=== PATIENT | male | born 1955 | race Caucasian/White ===

== ENCOUNTER → 2017-11-17 | Outpatient (CLI) | payer OTHER ==
[~2017-11-17] MED LIST: ALBUTEROL SULF 2.5 MG/0.5ML(0.5%) NEB SOLN ONE
== END | disposition home or self-care (01) ==
LOC: RT 08:27
DX: J44.9 Chronic obstructive pulmonary disease, unspecified (principal); I10 Essential (primary) hypertension; M10.9 Gout, unspecified; N40.1 Benign prostatic hyperplasia with lower urinary tract symptoms; E78.2 Mixed hyperlipidemia; M79.2 Neuralgia and neuritis, unspecified; F32.89 Other specified depressive episodes; R80.1 Persistent proteinuria, unspecified; R97.20 Elevated prostate specific antigen [PSA]; R16.2 Hepatomegaly with splenomegaly, not elsewhere classified; R69 Illness, unspecified; R79.89 Other specified abnormal findings of blood chemistry; B02.9 Zoster without complications; E78.81 Lipoid dermatoarthritis; D17.1 Benign lipomatous neoplasm of skin and subcutaneous tissue of trunk; Z86.59 Personal history of other mental and behavioral disorders
CPT/HCPCS: 94060

== ENCOUNTER 2020-08-28 01:33 | Inpatient (IN) | payer MEDICARE, OTHER ==
[~2020-08-28] VITALS: Ht 188 cm; Wt 100.7 kg
[2020-08-28] MEDS ORDERED: cloNIDine HCL 0.1 MG TAB PO ONE ×2 (01:45→03:15)
[2020-08-28 02:25] LABS: Basophils # (auto) 0 10 ^3/uL (0-0.2); Basophils % (auto) 0.5 % (0.0-2.0); Eosinophils # (auto) 0 10 ^3/uL (0-0.8); Hematocrit 53.7 % (41.0-53.0); Hemoglobin 17.9 g/dL (13.5-17.5); Lymphocytes # (auto) 0.6 10 ^3/uL (0.4-5.4); Lymphocytes % (auto) 6.1 % (10.0-50.0); Mean Corpuscular Hemoglobin 29.5 pg (28.0-32.0); Mean Corpuscular Hgb Conc. 33.2 g/dL (32.0-36.0); Mean Corpuscular Volume 88.9 fL (80.0-100.0); Monocytes # (auto) 0.1 10 ^3/uL (0-1.3); Monocytes % (auto) 0.7 % (0.0-12.0); Neutrophils # (auto) 9.1 10 ^3/uL (1.6-8.6); Neutrophils % (auto) 92.7 % (37.0-80.0); Nucleated Red Blood Cells % 0.2 %; Platelet Count (auto) 79 10^3/uL (140-450); Red Blood Cells 6.05 10^6/uL (4.5-5.90); Red Cell Distribution Width 15.6 % (11.8-14.3); White Blood Cell 9.9 10^3/uL (4.4-10.8)
[2020-08-28 02:31] LABS: INR 0.99 (0.9-1.15); Partial Thromboplastin Time 26.7 sec (23.0-31.2)
[2020-08-28 02:33] LABS: Albumin 4.1 g/dL (3.4-5.0); Anion Gap 6 (5-15); Blood Urea Nitrogen 20 mg/dL (7-18); Calcium 9.2 mg/dL (8.5-10.1); Carbon Dioxide 26 mmol/L (21-32); Chloride 107 mmol/L (98-107); Glucose 130 mg/dL (74-106); Potassium 4.4 mmol/L (3.5-5.1); Sodium 139 mmol/L (136-145)
[2020-08-28 02:38] LABS: Alanine Aminotransferase 31 U/L (16-61); Alkaline Phosphatase 96 U/L (45-117); Aspartate Aminotransferase 18 U/L (15-37); BUN/Creatinine Ratio 17.5; Bilirubin, Total 0.9 mg/dL (0.2-1.0); GFR African American 83 mL/min; GFR Non-African American 68 mL/min; Total Protein 8.1 g/dL (6.4-8.2)
[2020-08-28] MEDS ORDERED: methylPREDNISolone SOD SUCC 125 MG/2 ML VL IV ONE (03:15)
[2020-08-28] MEDS ORDERED: IPRATROPIUM BROM 0.5 MG/2.5ML INH SOL NEB ONE (03:15)
[2020-08-28] MEDS ORDERED: ALBUTEROL SULF 2.5 MG/0.5ML(0.5%) NEB SOLN NEB ONE (03:15)
[2020-08-28] MEDS ORDERED: MORPHINE SULF INJ 2 MG/ML SYRINGE 1ML IV PRN (04:30)
[2020-08-28] MEDS ORDERED: ONDANSETRON HCL 4 MG/2 ML VIAL IV PRN (04:30)
[2020-08-28] MEDS ORDERED: ACETAMINOPHEN 325 MG TAB PO PRN (04:30)
[2020-08-28] MEDS ORDERED: TEMAZEPAM 15 MG CAP PO PRN (04:30)
[2020-08-28] MEDS: ALBUTEROL SULF 2.5 MG/0.5ML(0.5%) NEB SOLN NEB SCH ×4 (06:07→23:46)
[2020-08-28] MEDS: IPRATROPIUM BROM 0.5 MG/2.5ML INH SOL NEB SCH ×4 (06:08→23:46)
[2020-08-28] MEDS ORDERED: ENOXAPARIN SOD 40 MG/0.4 ML SYRINGE SC SCH ×2 (10:00)
[2020-08-28] MEDS: FAMOTIDINE 20 MG TAB PO SCH ×2 (10:10→21:56)
[2020-08-28] MEDS: LISINOPRIL 5 MG TAB PO SCH (10:10)
[2020-08-28] MEDS ORDERED: MET50T PO (10:37)
[2020-08-28] MEDS ORDERED: FLUO-126 PO (10:37)
[2020-08-28] MEDS ORDERED: CLON0.2T PO (10:37)
[2020-08-28] MEDS ORDERED: ALLO100T PO (10:37)
[2020-08-28] MEDS ORDERED: FINA5TAB4 PO (10:37)
[2020-08-28] MEDS ORDERED: TIOT17SP IN (10:37)
[2020-08-28] MEDS ORDERED: ALBUAER3 IN (10:37)
[2020-08-28] MEDS ORDERED: LISI-646 PO (10:37)
[2020-08-28] MEDS ORDERED: BUDE1AER4 IN (10:37)
[2020-08-28] MEDS ORDERED: CYAN100T7 PO (10:37)
[2020-08-28] MEDS ORDERED: ALFU10TA10 PO (10:37)
[2020-08-28 15:06] VITALS: BP 131/76
[2020-08-28 16:00] VITALS: BP 154/89
--- NOTE | 2020-08-28 16:00 | NUR ---
Telemetry admit from [facility] admitted to Telemetry unit after SBAR received. Patient oriented to Amina Najera, primary RN, unit, room, bed, and unit policies regarding patient care and visiting hours. Patient now on continuous telemetry monitoring, tele box # 49 and telemetry reading on arrival to unit is SINUS RHYTHM IN THE 60'S. Patient placed on bedside oxygen, weighed by bedscale and encouraged to call if they need something. All questions and concerns addressed, patient verbalized understanding. Bed locked in lowest position, side rails up x2, call light within reach. Will continue to monitor q1hr and PRN.
[2020-08-28 17:00] VITALS: BP 154/89
[2020-08-28] MEDS ORDERED: amLODIPine BESYLATE 5 MG TAB PO ONE (17:45)
[2020-08-28] MEDS ORDERED: AZITHROMYCIN 250 MG TAB PO ONE (17:45)
--- NOTE | 2020-08-28 18:37 | NUR ---
PATIENT ROUNDS PATIENT SITTING UP EATING DINNER. NO DISTRESS NOTED. PATIENT MIKAL PAIN AT THIS TIME. WILL ENDORSE CARE TO CARPET TILE LAYER RN.
--- NOTE | 2020-08-28 19:45 | NUR ---
Opening Shift Note Assumed care of patient, awake and alert x 4. No S/S of distress/SOB or pain. Tele box matches pt all leads in place. Bed lowered and locked side rails up x 2. Call light and beside table within reach. Instructed on POC and to call for assist PRN, will continue to monitor for changes Q1hr and PRN.
[2020-08-28] MEDS: cloNIDine HCL 0.1 MG TAB PO PRN (21:55)
[2020-08-28 22:00] VITALS: BP 162/90
[2020-08-29 05:00] VITALS: BP 161/94
[2020-08-29 06:17] LABS: Basophils # (auto) 0 10 ^3/uL (0-0.2); Basophils % (auto) 0.1 % (0.0-2.0); Eosinophils # (auto) 0 10 ^3/uL (0-0.8); Hematocrit 45.7 % (41.0-53.0); Lymphocytes # (auto) 0.9 10 ^3/uL (0.4-5.4); Lymphocytes % (auto) 5.8 % (10.0-50.0); Mean Corpuscular Hgb Conc. 32.8 g/dL (32.0-36.0); Mean Corpuscular Volume 88.4 fL (80.0-100.0); Monocytes # (auto) 0.6 10 ^3/uL (0-1.3); Monocytes % (auto) 3.7 % (0.0-12.0); Neutrophils # (auto) 14.3 10 ^3/uL (1.6-8.6); Neutrophils % (auto) 90.4 % (37.0-80.0); Nucleated Red Blood Cells % 0.2 %; Platelet Count (auto) 74 10^3/uL (140-450); Red Blood Cells 5.17 10^6/uL (4.5-5.90); Red Cell Distribution Width 15.6 % (11.8-14.3); White Blood Cell 15.8 10^3/uL (4.4-10.8)
[2020-08-29] MEDS: ALBUTEROL SULF 2.5 MG/0.5ML(0.5%) NEB SOLN NEB SCH ×3 (06:52→19:23)
[2020-08-29] MEDS: IPRATROPIUM BROM 0.5 MG/2.5ML INH SOL NEB SCH ×3 (06:53→19:23)
[2020-08-29 07:26] LABS: Anion Gap 7 (5-15); BUN/Creatinine Ratio 21.4; Blood Urea Nitrogen 21 mg/dL (7-18); Calcium 8.7 mg/dL (8.5-10.1); Carbon Dioxide 24 mmol/L (21-32); Chloride 108 mmol/L (98-107); GFR African American 98 mL/min; GFR Non-African American 81 mL/min; Glucose 101 mg/dL (74-106); Potassium 4.2 mmol/L (3.5-5.1); Sodium 139 mmol/L (136-145)
--- NOTE | 2020-08-29 07:35 | NUR ---
Opening Shift Note Assumed care of patient, awake and alert. No S/S of distress/SOB, patient denies pain at this time. Instructed on POC and to call for assistance PRN, patient verbalized understanding. Bed locked in lowest position, side rails up x2, call light within reach. Will continue to monitor for changes Q1hr and PRN.
[2020-08-29 09:00] VITALS: BP 143/89
[2020-08-29] MEDS: FAMOTIDINE 20 MG TAB PO SCH ×2 (09:27→21:46)
[2020-08-29] MEDS: methylPREDNISolone SOD SUCC 40 MG/ML VL IV SCH ×2 (09:28→09:29)
[2020-08-29] MEDS: amLODIPine BESYLATE 5 MG TAB PO SCH (09:28)
[2020-08-29] MEDS: LISINOPRIL 5 MG TAB PO SCH (09:28)
[2020-08-29] MEDS: AZITHROMYCIN 250 MG TAB PO SCH (09:28)
[2020-08-29] MEDS ORDERED: ALLOPURINOL 100 MG TAB PO ONE (11:00)
[2020-08-29] MEDS: FLUoxetine HCL 10 MG CAP PO SCH (11:45)
[2020-08-29] MEDS: TAMSULOSIN HYDROCHLORIDE 0.4 MG CAP PO SCH (11:47)
[2020-08-29] MEDS: FINASTERIDE 5 MG TAB PO SCH (11:47)
--- NOTE | 2020-08-29 12:30 | NUR ---
IV removal IV DC'd with clean sterile technique, catheter fully intact. Pressure dressing applied to site. Patient tolerated well. NOTE: [iv leaking and falling out]
--- NOTE | 2020-08-29 12:45 | NUR ---
IV insertion IV access obtained, via clean sterile technique by inserting 20 gauge catheter at left forearm after 1 attempt. IV secured properly. No trauma to site. Patient tolerated well.
[2020-08-29 13:00] VITALS: BP 148/93
[2020-08-29] MEDS ORDERED: IOHEXOL 350 MG/ML 100ML IJ ONE (16:04)
--- NOTE | 2020-08-29 16:44 | NUR ---
RAPID INFLUENZA A/B SWAB SENT TO LAB
[2020-08-29 17:00] VITALS: BP 156/88
--- NOTE | 2020-08-29 18:41 | NUR ---
PATIENT ROUNDS PATIENT SITTING UP IN CHAIR EATING DINNER. NO DISTRESS NOTED. PATIENT MIKAL PAIN AT THIS TIME. WILL ENDORSE CARE TO BILLET CUTTER RN.
[2020-08-29] MEDS: BUDESONIDE (INHALATION) 0.5 MG/2 ML NEB NEB SCH (19:24)
--- NOTE | 2020-08-29 19:35 | NUR ---
RECEIVED PATIENT FROM DAY SHIFT RN. PATIENT SITTING ON THE SIDE OF THE BED. NO S/S OF DISTRESS NOTED. DENIED PAIN AT THIS TIME. POC INSTRUCTED AND ENCOURAGED PATIENT TO CALL FOR SALES MANAGER IF NEEDED. BED IN LOWEST LOCKED POSITION WITH SIDE RAILS UP X 2. CALL PAT WITHIN REACH. CONTINUE TO MONITOR FOR CHANGES Q1H AND PRN.
[2020-08-29 21:00] VITALS: BP 165/94
[2020-08-29] MEDS: cloNIDine HCL 0.1 MG TAB PO PRN (21:48)
--- NOTE | 2020-08-29 21:49 | NUR ---
PATIENT C/O HEADACHE, BP 165/94, HR 79. PRN BP MEDICATION GIVEN ORDERED. CONTINUE TO MONITOR.
--- NOTE | 2020-08-29 22:30 | NUR ---
REASSESSED BP 156/99. HR 72. CONTINUE TO MONITOR.
[2020-08-30] VITALS (7 sets, daily range): BP systolic 136–178; BP diastolic 90–109
[2020-08-30] MEDS: ALBUTEROL SULF 2.5 MG/0.5ML(0.5%) NEB SOLN NEB SCH ×4 (00:43→18:35)
[2020-08-30] MEDS: IPRATROPIUM BROM 0.5 MG/2.5ML INH SOL NEB SCH ×4 (00:43→18:35)
[2020-08-30] MEDS: cloNIDine HCL 0.1 MG TAB PO PRN (05:02)
--- NOTE | 2020-08-30 05:03 | NUR ---
PATIENT'S BP WENT UP TO 173/92, HR 67. PRN BP MEDICATION GIVEN ORDERED. CONTINUE TO MONITOR.
[2020-08-30] MEDS: BUDESONIDE (INHALATION) 0.5 MG/2 ML NEB NEB SCH ×2 (07:01→18:36)
--- NOTE | 2020-08-30 08:00 | NUR ---
OPENING SHIFT NOTE: PATIENT SITTING IN CHAIR. RESPIRATIONS EVEN AND UNLABORED ON 3L NC. PATIENT ALERT AND ORIENTEDX4. DENIES ANY SOB AT THIS TIME. PATIENT REPORTS EPISODE OF CHEST PAIN LAST NIGHT WITH ASSOCIATED SOB. NON RADIATING AT LEFT SIDE OF CHEST. PATIENT DENIES ANY N/V OR DIAPHORESIS AT TIME. PATIENT UPDATED ON POC. BED IN LOWEST LOCKED POSITION WITH CALL LIGHT WITHIN REACH. PATIENT PROVIDED WITH IS. PATIENT PERFORMED PROPER RETURN DEMONSTRATION 2000ML. WILL CONTINUE CARE.
[2020-08-30] MEDS: FLUoxetine HCL 10 MG CAP PO SCH (09:17)
[2020-08-30] MEDS: FAMOTIDINE 20 MG TAB PO SCH ×2 (09:17→21:48)
[2020-08-30] MEDS: FINASTERIDE 5 MG TAB PO SCH (09:18)
[2020-08-30] MEDS: amLODIPine BESYLATE 5 MG TAB PO SCH (09:18)
[2020-08-30] MEDS: LISINOPRIL 5 MG TAB PO SCH (09:18)
[2020-08-30] MEDS: AZITHROMYCIN 250 MG TAB PO SCH (09:18)
[2020-08-30] MEDS: TAMSULOSIN HYDROCHLORIDE 0.4 MG CAP PO SCH (09:18)
[2020-08-30] MEDS: methylPREDNISolone SOD SUCC 40 MG/ML VL IV SCH (09:20)
--- NOTE | 2020-08-30 10:10 | NUR ---
Rody ROUNDING: Rody KAHN AT BEDSIDE. INFORMED OF PATIENTS CHEST PAIN AND OF PATIENTS NEW ONSET SPUTUM AND ELEVATED WBC. RECEIVED NEW ORDERS SEE EMAR.
[2020-08-30] MEDS: levoFLOXacin 500 MG TAB PO SCH (11:28)
[2020-08-30] MEDS ORDERED: cloNIDine HCL 0.1 MG TAB PO ONE (11:45)
--- NOTE | 2020-08-30 17:30 | NUR ---
Andra RIDER AT BEDSIDE. INFORMED OF PATIENTS STATUS. INFORMED OF PATIENTS NOTCHED P WAVE. SEE EMR FOR NEW ORDERS.
--- NOTE | 2020-08-30 19:33 | NUR ---
RECEIVED PATIENT FROM DAY SHIFT RN. PATIENT RESTING IN BED. NO S/S OF DISTRESS NOTED. DENIED PAIN AT THIS TIME. REINFORCED NPO AFTER MIDNIGHT FOR PROCEDURE TOMORROW. POC INSTRUCTED AND ENCOURAGED PATIENT TO CALL FOR TOOL ADJUSTER IF NEEDED. BED IN LOWEST LOCKED POSITION WITH SIDE RAILS UP X 2. CALL PAT WITHIN REACH. ALARM ON. CONTINUE TO MONITOR FOR CHANGES Q1H AND PRN.
[2020-08-30] MEDS: cloNIDine HCL 0.1 MG TAB PO SCH (21:48)
--- NOTE | 2020-08-30 21:48 | NUR ---
2ND IV insertion FOR PROCEDURE PER PROTOCOL IV access obtained, via clean sterile technique by inserting [20] gauge catheter at [RFA] after [1] attempt(s). IV secured properly. No trauma to site. Patient tolerated well. NOTE: []
[2020-08-30] MEDS: NITROGLYCERIN 0.4 MG SL TAB SL PRN ×2 (23:40→23:53)
--- NOTE | 2020-08-30 23:45 | NUR ---
PATIENT C/O CHEST TIGHTNESS AND PAIN @ 7/10, VITALS, BP 152/99, HR 72, RR 18 O2 SAT 92% ON RA. EKG DONE SHOWED SR [address]LEVATION. NITROGLYCERIN GIVEN ORDERED.WILL REPORT TO MD. LATER.
--- NOTE | 2020-08-30 23:53 | NUR ---
PATIENT STATED CHEST PRESSURE AND PAIN GETTING BETTER. PAIN @ 5/10 AT THIS TIME, BP 140/90,, HR 71. 2ND DOSE OF NITROGLYCERIN GIVEN ORDERED. WILL REPORT TO MD. CONTINUE TO MONITOR.
[2020-08-31] VITALS (7 sets, daily range): BP systolic 131–160; BP diastolic 83–100
--- NOTE | 2020-08-31 00:05 | NUR ---
HOSPITALIST Called/paged PRINTING AND STAMPING SUPERVISOR ARELI called re:PATIENT HAD EPISODE OF CHEST PAIN. Waiting for call back. Continue care.
[2020-08-31] MEDS: ALBUTEROL SULF 2.5 MG/0.5ML(0.5%) NEB SOLN NEB SCH ×4 (00:38→19:12)
[2020-08-31] MEDS: IPRATROPIUM BROM 0.5 MG/2.5ML INH SOL NEB SCH ×4 (00:38→19:12)
[2020-08-31 06:15] LABS: Cholesterol 168 mg/dL (< 200); HDL Cholesterol 39 mg/dL (40-59); LDL Cholesterol 120 mg/dL (< 100); Triglycerides 125 mg/dL (< 150)
--- NOTE | 2020-08-31 08:00 | NUR ---
Opening Shift Note Assumed care of patient, awake, alert, and oriented. No S/S of distress/SOB or pain. Bed in lowest/locked position, bed rails up x2, call light within reach. Instructed on POC and to call for assist PRN. Will continue to monitor for changes Q1hr and PRN.
[2020-08-31] MEDS ORDERED: ADENOSINE 85 MG in GIVE UN-DILUTED 0 ML IV STA (08:21)
[2020-08-31] MEDS: methylPREDNISolone SOD SUCC 40 MG/ML VL IV SCH (10:08)
[2020-08-31] MEDS: cloNIDine HCL 0.1 MG TAB PO SCH ×2 (10:10→22:17)
[2020-08-31] MEDS: LISINOPRIL 5 MG TAB PO SCH (10:11)
[2020-08-31] MEDS: FAMOTIDINE 20 MG TAB PO SCH ×2 (10:12→22:16)
[2020-08-31] MEDS: FLUoxetine HCL 10 MG CAP PO SCH (10:12)
[2020-08-31] MEDS: levoFLOXacin 500 MG TAB PO SCH (10:13)
[2020-08-31] MEDS: FINASTERIDE 5 MG TAB PO SCH (10:13)
[2020-08-31] MEDS: amLODIPine BESYLATE 5 MG TAB PO SCH (10:13)
[2020-08-31] MEDS: TAMSULOSIN HYDROCHLORIDE 0.4 MG CAP PO SCH (10:15)
--- NOTE | 2020-08-31 10:40 | NUR ---
MD ROUNDS DR HOFFMAN AT BEDSIDE DISCUSSING POC WITH PATIENT. NEW ORDERS RECEIVED/WILL CARRY OUT. WILL CONTINUE TO MONITOR
--- NOTE | 2020-08-31 11:50 | NUR ---
BLOOD PRESSURE PATIENT B/P 160/100 AFTER MORNING MEDICATIONS RECEIVED. NO PRN MEDS IN EMAR AT THIS TIME. PAGED DR HOFFMAN, AWAITING RETURN CALL
--- NOTE | 2020-08-31 11:53 | NUR ---
Nutrition Assessment Note please see attached link for complete assessment [employer] needs bw 100 [id number] kcals (23-25kcal/kgBW), Est Protein needs: 100-111 gms/day (1.0-1.1gm/kgBW). Will continue to monitor and reassess prn. Addendum: 08/31/20 at [address] Amended: Links added.
[2020-08-31] MEDS: BUDESONIDE (INHALATION) 0.5 MG/2 ML NEB NEB SCH ×2 (12:02→19:13)
--- NOTE | 2020-08-31 12:03 | NUR ---
MD CALL DR HOFFMAN RETURNED CALL RE: PATIENT B/P 160/100. NEW ORDERS RECEIVED/WILL CARRY OUT. WILL CONTINUE TO MONITOR
[2020-08-31] MEDS ORDERED: cloNIDine HCL 0.1 MG TAB PO PRN (12:15)
--- NOTE | 2020-08-31 19:41 | NUR ---
Opening Shift Note Received report and assumed care of patient. Patient is awake and alert. No signs or symptoms of distress noted. Instructed patient on plan of care and to call for assistance as needed. Will continue to monitor.
[2020-09-01] MEDS: IPRATROPIUM BROM 0.5 MG/2.5ML INH SOL NEB SCH ×3 (00:28→12:01)
[2020-09-01] MEDS: ALBUTEROL SULF 2.5 MG/0.5ML(0.5%) NEB SOLN NEB SCH ×3 (00:28→12:01)
[2020-09-01 00:52] VITALS: BP 134/93
--- NOTE | 2020-09-01 00:54 | NUR ---
[facility] Hospitalist Patient's blood pressure 154/105 after administration of scheduled blood pressure medication. [facility] Hospitalist. Received new order for hydralazine 10mg IV q6hr PRN for SBP >150. Order read back and verified. Rechecked patient's blood pressure before administration to be 134/93. PRN Medication not indicated at this time. Will continue to monitor.
[2020-09-01] MEDS ORDERED: hydrALAZINE HCL 20 MG/ML VL IV PRN (01:00)
[2020-09-01 05:12] VITALS: BP 146/98
[2020-09-01] MEDS: BUDESONIDE (INHALATION) 0.5 MG/2 ML NEB NEB SCH (06:41)
[2020-09-01 07:06] LABS: Basophils # (auto) 0 10 ^3/uL (0-0.2); Basophils % (auto) 0.1 % (0.0-2.0); Eosinophils # (auto) 0 10 ^3/uL (0-0.8); Eosinophils % (auto) 0.1 % (0.0-7.0); Hematocrit 48.3 % (41.0-53.0); Hemoglobin 16.2 g/dL (13.5-17.5); Mean Corpuscular Hemoglobin 29.6 pg (28.0-32.0); Mean Corpuscular Hgb Conc. 33.7 g/dL (32.0-36.0); Mean Corpuscular Volume 87.9 fL (80.0-100.0); Monocytes # (auto) 0.5 10 ^3/uL (0-1.3); Monocytes % (auto) 4.1 % (0.0-12.0); Neutrophils # (auto) 11.1 10 ^3/uL (1.6-8.6); Neutrophils % (auto) 87.7 % (37.0-80.0); Nucleated Red Blood Cells % 0.1 %; Platelet Count (auto) 68 10^3/uL (140-450); Red Blood Cells 5.49 10^6/uL (4.5-5.90); Red Cell Distribution Width 15.2 % (11.8-14.3); White Blood Cell 12.6 10^3/uL (4.4-10.8)
[2020-09-01 07:23] LABS: Chloride 103 mmol/L (98-107); Potassium 4.2 mmol/L (3.5-5.1); Sodium 137 mmol/L (136-145)
[2020-09-01 07:35] LABS: Anion Gap 6 (5-15); BUN/Creatinine Ratio 25.5; Blood Urea Nitrogen 26 mg/dL (7-18); Calcium 8.9 mg/dL (8.5-10.1); Carbon Dioxide 28 mmol/L (21-32); GFR African American 94 mL/min; GFR Non-African American 78 mL/min; Glucose 100 mg/dL (74-106)
[2020-09-01] MEDS: methylPREDNISolone SOD SUCC 40 MG/ML VL IV SCH (08:07)
[2020-09-01] MEDS: LISINOPRIL 5 MG TAB PO SCH (08:08)
[2020-09-01] MEDS: FAMOTIDINE 20 MG TAB PO SCH (08:08)
[2020-09-01] MEDS: TAMSULOSIN HYDROCHLORIDE 0.4 MG CAP PO SCH (08:08)
[2020-09-01] MEDS: FLUoxetine HCL 10 MG CAP PO SCH (08:08)
[2020-09-01] MEDS: levoFLOXacin 500 MG TAB PO SCH (08:08)
[2020-09-01] MEDS: cloNIDine HCL 0.1 MG TAB PO SCH (08:09)
[2020-09-01] MEDS: FINASTERIDE 5 MG TAB PO SCH (08:10)
[2020-09-01] MEDS: amLODIPine BESYLATE 5 MG TAB PO SCH (08:10)
[2020-09-01 09:00] VITALS: BP 149/99
--- NOTE | 2020-09-01 11:45 | NUR ---
MD ROUNDS DR HOFFMAN AT BEDSIDE. NEW ORDERS RECEIVED/WILL CARRY OUT. WILL CONTINUE TO MONITOR
[2020-09-01 12:31] VITALS: BP 146/97
--- NOTE | 2020-09-01 13:56 | NUR ---
Discharge instructions given as ordered. Encourage to follow up with PMD as instructed. All questions and concerns addressed. Patient verbalized understanding. Medication reconciliation form completed and copy given to patient. Home medications held in Pharmacy returned to patient. IV removed with catheter intact, pressure dressing applied Telemetry unit returned to ICU. Patient taken to vehicle via wheelchair with all personal belongings, accompanied by staff and family member. No distress noted at time of departure.
== END 2020-09-01 14:00 | disposition home or self-care (01) | DRG 189 ==
LOC: ER 01:36 → TELE 01:37 → TELE-WESTW 15:53
PROVIDERS: ADMIT Nurse Practitioner; ATTEND Internal Medicine
DX: J96.21 Acute and chronic respiratory failure with hypoxia (principal); J44.0 Chronic obstructive pulmonary disease with (acute) lower respiratory infection; J45.901 Unspecified asthma with (acute) exacerbation; I16.1 Hypertensive emergency; J98.11 Atelectasis; J44.1 Chronic obstructive pulmonary disease with (acute) exacerbation; J20.9 Acute bronchitis, unspecified; E66.9 Obesity, unspecified; M10.9 Gout, unspecified; N40.0 Benign prostatic hyperplasia without lower urinary tract symptoms; Z20.828 Contact with and (suspected) exposure to other viral communicable diseases; Z82.49 Family history of ischemic heart disease and other diseases of the circulatory system; Z83.3 Family history of diabetes mellitus; Z87.891 Personal history of nicotine dependence; Z91.19 Patient's noncompliance with other medical treatment and regimen; I10 Essential (primary) hypertension; Z68.28 Body mass index [BMI] 28.0-28.9, adult
CPT/HCPCS: 36415; 36600; 71045; 71275; 76536; 78452; 80048; 80053; 80061; 82805; 83880; 84443; 84484; 85025; 85379; 85610; 85730; 87804; 93005; 93017; 93306; 94640; 96374; G0378; J0153

== ENCOUNTER 2021-02-01 20:03 | Inpatient (IN) | payer MEDICARE ==
[~2021-02-01] VITALS: Ht 182.9 cm; Wt 103.5 kg
[~2021-02-01 20:03] MED LIST changes: +ALBUAER3 IN; -ALBUTEROL SULF 2.5 MG/0.5ML(0.5%) NEB SOLN ONE; +ALFU10TA10 PO; +ALLO100T PO; +BUDE1AER4 IN; +CLON0.2T PO; +CYAN100T7 PO; +FINA5TAB4 PO; +FLUO-126 PO; +LISI20TA28 PO; +MET50T PO; +TIOT17SP IN
[2021-02-01] MEDS ORDERED: cloNIDine HCL 0.1 MG TAB PO ONE (20:30)
[2021-02-01] MEDS ORDERED: LABETALOL HCL 5 MG/ML 4ML SYRINGE IV ONE (22:15)
[2021-02-01 22:16] LABS: Basophils # (auto) 0 10 ^3/uL (0-0.2); Basophils % (auto) 0.3 % (0.0-2.0); Eosinophils # (auto) 0.1 10 ^3/uL (0-0.8); Eosinophils % (auto) 1.3 % (0.0-7.0); Hematocrit 45.4 % (41.0-53.0); Hemoglobin 15.5 g/dL (13.5-17.5); Lymphocytes # (auto) 1.4 10 ^3/uL (0.4-5.4); Mean Corpuscular Hemoglobin 29.9 pg (28.0-32.0); Mean Corpuscular Hgb Conc. 34.1 g/dL (32.0-36.0); Mean Corpuscular Volume 87.6 fL (80.0-100.0); Monocytes # (auto) 0.4 10 ^3/uL (0-1.3); Monocytes % (auto) 4.2 % (0.0-12.0); Neutrophils # (auto) 7.3 10 ^3/uL (1.6-8.6); Neutrophils % (auto) 79.2 % (37.0-80.0); Nucleated Red Blood Cells % 0.9 %; Platelet Count (auto) 76 10^3/uL (140-450); Red Blood Cells 5.18 10^6/uL (4.5-5.90); White Blood Cell 9.3 10^3/uL (4.4-10.8)
[2021-02-01 22:27] LABS: INR 1.02 (0.9-1.15); Partial Thromboplastin Time 28.2 sec (23.0-31.2)
[2021-02-01 22:29] LABS: Albumin 3.4 g/dL (3.4-5.0); Anion Gap 5 (5-15); Blood Urea Nitrogen 18 mg/dL (7-18); Calcium 8.6 mg/dL (8.5-10.1); Carbon Dioxide 29 mmol/L (21-32); Chloride 104 mmol/L (98-107); Glucose 103 mg/dL (74-106); Potassium 4.1 mmol/L (3.5-5.1); Sodium 138 mmol/L (136-145)
[2021-02-01 22:35] LABS: Alanine Aminotransferase 28 U/L (16-61); Alkaline Phosphatase 70 U/L (45-117); Aspartate Aminotransferase 12 U/L (15-37); Bilirubin, Total 0.8 mg/dL (0.2-1.0); GFR African American 90 mL/min; GFR Non-African American 74 mL/min; Total Protein 6.4 g/dL (6.4-8.2)
[2021-02-02] MEDS ORDERED: NITROGLYCERIN 0.4 MG SL TAB SL PRN (03:15)
[2021-02-02] MEDS ORDERED: MORPHINE SULF INJ 2 MG/ML SYRINGE 1ML IV PRN (03:15)
[2021-02-02] MEDS ORDERED: MORPHINE SULFATE 4 MG/ML SYR/VIAL IV PRN (03:15)
[2021-02-02] MEDS ORDERED: ONDANSETRON HCL 4 MG/2 ML VIAL IV PRN (03:15)
[2021-02-02] MEDS ORDERED: DOCUSATE SOD 100 MG CAP PO PRN (03:15)
[2021-02-02] MEDS: SODIUM CHLOR 0.9% PF (SALINE LOCK) 10ML VIAL/SYR IV SCH ×3 (06:09→21:27)
[2021-02-02 06:51] LABS: Basophils # (auto) 0 10 ^3/uL (0-0.2); Basophils % (auto) 0.3 % (0.0-2.0); Eosinophils # (auto) 0.2 10 ^3/uL (0-0.8); Eosinophils % (auto) 2.5 % (0.0-7.0); Hematocrit 43.2 % (41.0-53.0); Hemoglobin 14.9 g/dL (13.5-17.5); Lymphocytes # (auto) 1.6 10 ^3/uL (0.4-5.4); Lymphocytes % (auto) 19.3 % (10.0-50.0); Mean Corpuscular Hgb Conc. 34.5 g/dL (32.0-36.0); Mean Corpuscular Volume 86.9 fL (80.0-100.0); Monocytes # (auto) 0.4 10 ^3/uL (0-1.3); Monocytes % (auto) 4.9 % (0.0-12.0); Neutrophils # (auto) 6.1 10 ^3/uL (1.6-8.6); Nucleated Red Blood Cells % 0.4 %; Platelet Count (auto) 75 10^3/uL (140-450); Red Blood Cells 4.97 10^6/uL (4.5-5.90); White Blood Cell 8.3 10^3/uL (4.4-10.8)
[2021-02-02 06:52] LABS: Potassium 3.8 mmol/L (3.5-5.1)
[2021-02-02 07:00] LABS: Albumin 3.3 g/dL (3.4-5.0); BUN/Creatinine Ratio 18.1; Bilirubin, Total 1.1 mg/dL (0.2-1.0); Calcium 8.5 mg/dL (8.5-10.1); Total Protein 6.1 g/dL (6.4-8.2)
[2021-02-02 09:00] VITALS: BP 161/98
[2021-02-02] MEDS: amLODIPine BESYLATE 5 MG TAB PO SCH (09:48)
[2021-02-02] MEDS: FAMOTIDINE 20 MG TAB PO SCH ×2 (09:48→21:27)
[2021-02-02] MEDS: ASCORBIC ACID 500 MG TAB PO SCH ×2 (09:48→21:27)
[2021-02-02] MEDS ORDERED: LISINOPRIL 20 MG TAB PO SCH (10:00)
[2021-02-02] MEDS ORDERED: MULTIPLE VITAMIN TAB PO SCH (10:00)
[2021-02-02] MEDS ORDERED: ZINC SULFATE 220mg CAP or TAB PO SCH (10:00)
[2021-02-02 13:00] VITALS: BP 144/80
[2021-02-02] MEDS ORDERED: DOCUSATE SOD 100 MG CAP PO ONE (15:30)
[2021-02-02 16:55] VITALS: BP 154/89
[2021-02-02] MEDS: ACETAMINOPHEN 325 MG TAB PO PRN (17:46)
[2021-02-02] MEDS: hydrALAZINE HCL 20 MG/ML VL IV PRN (21:27)
[2021-02-02] MEDS: LACTULOSE 20Gm/30ML SOLN PO SCH (21:27)
[2021-02-02] MEDS: DOCUSATE SOD 100 MG CAP PO SCH (21:27)
[2021-02-02 22:00] VITALS: BP 158/102
[2021-02-03] VITALS (8 sets, daily range): BP systolic 128–179; BP diastolic 82–103
[2021-02-03] MEDS: ACETAMINOPHEN 325 MG TAB PO PRN (00:21)
[2021-02-03] MEDS: hydrALAZINE HCL 20 MG/ML VL IV PRN ×3 (03:29→16:22)
[2021-02-03] MEDS: SODIUM CHLOR 0.9% PF (SALINE LOCK) 10ML VIAL/SYR IV SCH ×3 (05:44→21:37)
[2021-02-03] MEDS: hydrALAZINE HCL 25 MG TAB PO SCH ×3 (05:44→21:37)
[2021-02-03 06:23] LABS: Basophils # (auto) 0 10 ^3/uL (0-0.2); Basophils % (auto) 0.3 % (0.0-2.0); Eosinophils # (auto) 0.2 10 ^3/uL (0-0.8); Eosinophils % (auto) 1.8 % (0.0-7.0); Hematocrit 48.7 % (41.0-53.0); Hemoglobin 16.6 g/dL (13.5-17.5); Lymphocytes # (auto) 1.4 10 ^3/uL (0.4-5.4); Lymphocytes % (auto) 15.7 % (10.0-50.0); Mean Corpuscular Hgb Conc. 34.2 g/dL (32.0-36.0); Mean Corpuscular Volume 87.7 fL (80.0-100.0); Monocytes # (auto) 0.4 10 ^3/uL (0-1.3); Monocytes % (auto) 4.7 % (0.0-12.0); Neutrophils % (auto) 77.5 % (37.0-80.0); Nucleated Red Blood Cells % 0.2 %; Platelet Count (auto) 74 10^3/uL (140-450); Red Blood Cells 5.55 10^6/uL (4.5-5.90); Red Cell Distribution Width 15.1 % (11.8-14.3); White Blood Cell 9.1 10^3/uL (4.4-10.8)
[2021-02-03 06:24] LABS: Albumin 3.6 g/dL (3.4-5.0); Calcium 8.6 mg/dL (8.5-10.1); Potassium 3.9 mmol/L (3.5-5.1)
[2021-02-03 06:27] LABS: BUN/Creatinine Ratio 17.1; Total Protein 6.9 g/dL (6.4-8.2)
[2021-02-03] MEDS ORDERED: NITROGLYCERIN 0.4 MG SL TAB SL ONE (07:30)
[2021-02-03] MEDS ORDERED: MORPHINE SULF INJ 2 MG/ML SYRINGE 1ML IV PRN (07:45)
[2021-02-03] MEDS ORDERED: SODIUM CHLORIDE 0.9% 1,000 ML IV SCH (08:30)
[2021-02-03] MEDS: cefTRIAXone 1GM/50ML D5W 50 ML IV SCH (09:00)
[2021-02-03] MEDS ORDERED: cefTRIAXone 1GM/50ML D5W 50 ML IV ONE (09:00)
[2021-02-03] MEDS ORDERED: methylPREDNISolone SOD SUCC 40 MG/ML VL IV ONE (09:00)
[2021-02-03] MEDS ORDERED: ASPirin 81 mg TAB PO ONE (09:15)
[2021-02-03] MEDS: DOCUSATE SOD 100 MG CAP PO SCH ×2 (10:56→21:38)
[2021-02-03] MEDS: LACTULOSE 20Gm/30ML SOLN PO SCH ×2 (10:56→21:37)
[2021-02-03] MEDS: amLODIPine BESYLATE 5 MG TAB PO SCH (10:56)
[2021-02-03] MEDS: ASCORBIC ACID 500 MG TAB PO SCH ×2 (10:57→21:38)
[2021-02-03] MEDS: FAMOTIDINE 20 MG TAB PO SCH ×2 (10:57→21:38)
[2021-02-03] MEDS ORDERED: ALBUTEROL SULF 2.5 MG/0.5ML(0.5%) NEB SOLN NEB SCH (12:00)
[2021-02-03] MEDS: IPRATROPIUM BROM 0.5 MG/2.5ML INH SOL NEB SCH ×2 (12:11→19:29)
[2021-02-03] MEDS: methylPREDNISolone SOD SUCC 40 MG/ML VL IV SCH ×2 (15:00→21:37)
[2021-02-03] MEDS ORDERED: LISINOPRIL 20 MG TAB PO ONE (16:30)
[2021-02-03] MEDS: ALBUTEROL SULF 2.5 MG/0.5ML(0.5%) NEB SOLN NEB SCH (19:29)
[2021-02-03] MEDS ORDERED: NITROGLYCERIN 0.4 MG SL TAB SL PRN (19:30)
[2021-02-03] MEDS: HYDROcodone-ACET 5/325MG TAB PO PRN (21:02)
[2021-02-03] MEDS ORDERED: TAMSULOSIN HYDROCHLORIDE 0.4 MG CAP PO SCH (22:30)
[2021-02-03] MEDS ORDERED: TEMAZEPAM 15 MG CAP PO PRN (22:30)
[2021-02-03] MEDS ORDERED: LISINOPRIL 20 MG TAB PO SCH (22:30)
[2021-02-03] MEDS: TAMSULOSIN HYDROCHLORIDE 0.4 MG CAP PO SCH (23:06)
[2021-02-03] MEDS: LISINOPRIL 20 MG TAB PO SCH (23:06)
[2021-02-04] MEDS: hydrALAZINE HCL 20 MG/ML VL IV PRN (01:05)
[2021-02-04] MEDS: HYDROcodone-ACET 5/325MG TAB PO PRN (04:36)
[2021-02-04 05:00] VITALS: BP 167/100
[2021-02-04] MEDS: methylPREDNISolone SOD SUCC 40 MG/ML VL IV SCH ×2 (06:02→22:09)
[2021-02-04] MEDS: SODIUM CHLOR 0.9% PF (SALINE LOCK) 10ML VIAL/SYR IV SCH ×3 (06:02→22:12)
[2021-02-04] MEDS: hydrALAZINE HCL 25 MG TAB PO SCH ×3 (06:03→22:10)
[2021-02-04] MEDS: IPRATROPIUM BROM 0.5 MG/2.5ML INH SOL NEB SCH ×3 (07:48→19:09)
[2021-02-04] MEDS: ALBUTEROL SULF 2.5 MG/0.5ML(0.5%) NEB SOLN NEB SCH ×3 (07:48→19:10)
[2021-02-04 08:41] VITALS: BP 160/91
[2021-02-04] MEDS ORDERED: LISINOPRIL 20 MG TAB PO SCH ×2 (10:00)
[2021-02-04] MEDS ORDERED: METOPROLOL TARTRATE 25 MG TAB PO ONE (10:15)
[2021-02-04] MEDS: cefTRIAXone 1GM/50ML D5W 50 ML IV SCH (10:49)
[2021-02-04] MEDS: DOCUSATE SOD 100 MG CAP PO SCH ×2 (10:50→22:11)
[2021-02-04] MEDS: ASPirin 81 mg TAB PO SCH (10:50)
[2021-02-04] MEDS: LACTULOSE 20Gm/30ML SOLN PO SCH ×2 (10:50→22:00)
[2021-02-04] MEDS: amLODIPine BESYLATE 5 MG TAB PO SCH (10:50)
[2021-02-04] MEDS: ASCORBIC ACID 500 MG TAB PO SCH ×2 (10:51→22:11)
[2021-02-04] MEDS: LISINOPRIL 20 MG TAB PO SCH (10:51)
[2021-02-04] MEDS: FAMOTIDINE 20 MG TAB PO SCH ×2 (10:51→22:11)
[2021-02-04] MEDS ORDERED: IPRATROPIUM BROM 0.5 MG/2.5ML INH SOL NEB PRN (12:45)
[2021-02-04] MEDS ORDERED: NIFEdipine ER 30 MG TAB PO ONE (12:45)
[2021-02-04] MEDS ORDERED: ALBUTEROL SULF 2.5 MG/0.5ML(0.5%) NEB SOLN NEB PRN (12:45)
[2021-02-04 13:02] VITALS: BP 163/99
[2021-02-04 14:05] LABS: Barbiturate Scree,Urine NEGATIVE (NEGATIVE); Benzodiazephine Screen, Urine POSITIVE (NEGATIVE); Cannabinoid Screen, Urine NEGATIVE (NEGATIVE); Cocaine Screen, Urine NEGATIVE (NEGATIVE); Opiate Scree,Urine POSITIVE (NEGATIVE); Phencyclidine Screen, Urine NEGATIVE (NEGATIVE)
[2021-02-04 14:12] LABS: Amphetamine Screen, Urine NEGATIVE (NEGATIVE)
[2021-02-04 16:39] VITALS: BP 156/88
[2021-02-04] MEDS: TAMSULOSIN HYDROCHLORIDE 0.4 MG CAP PO SCH (18:10)
[2021-02-04 22:00] VITALS: BP 146/87
[2021-02-04] MEDS: METOPROLOL TARTRATE 25 MG TAB PO SCH (22:10)
[2021-02-05 05:00] VITALS: BP 141/89
[2021-02-05] MEDS: SODIUM CHLOR 0.9% PF (SALINE LOCK) 10ML VIAL/SYR IV SCH ×2 (06:03→14:00)
[2021-02-05] MEDS: hydrALAZINE HCL 25 MG TAB PO SCH ×2 (06:25→14:00)
[2021-02-05 08:46] LABS: BUN/Creatinine Ratio 24.3; Calcium 9.1 mg/dL (8.5-10.1); Magnesium 2.6 mg/dL (1.6-2.6); Potassium 4.3 mmol/L (3.5-5.1)
[2021-02-05 09:00] VITALS: BP 128/77
[2021-02-05] MEDS: LACTULOSE 20Gm/30ML SOLN PO SCH (09:50)
[2021-02-05] MEDS: ASPirin 81 mg TAB PO SCH (09:50)
[2021-02-05] MEDS: DOCUSATE SOD 100 MG CAP PO SCH (09:50)
[2021-02-05] MEDS: FAMOTIDINE 20 MG TAB PO SCH (09:51)
[2021-02-05] MEDS: METOPROLOL TARTRATE 25 MG TAB PO SCH (09:51)
[2021-02-05] MEDS: ASCORBIC ACID 500 MG TAB PO SCH (09:52)
[2021-02-05] MEDS: LISINOPRIL 20 MG TAB PO SCH (09:52)
[2021-02-05] MEDS: methylPREDNISolone SOD SUCC 40 MG/ML VL IV SCH (09:53)
[2021-02-05] MEDS ORDERED: NIFEdipine ER 30 MG TAB PO SCH (10:00)
[2021-02-05] MEDS ORDERED: ALLOPURINOL 100 MG TAB PO SCH (10:00)
[2021-02-05] MEDS: ALBUTEROL SULF 2.5 MG/0.5ML(0.5%) NEB SOLN NEB SCH ×2 (11:28→11:29)
[2021-02-05] MEDS: IPRATROPIUM BROM 0.5 MG/2.5ML INH SOL NEB SCH ×2 (11:28→11:29)
[2021-02-05] MEDS ORDERED: MET25T PO (12:05)
[2021-02-05] MEDS ORDERED: LISI20TA28 PO (12:05)
[2021-02-05] MEDS ORDERED: METH4PAK PO (12:05)
[2021-02-05] MEDS ORDERED: ASPI1CHW15 PO (12:05)
[2021-02-05] MEDS ORDERED: NIFE1TAB31 PO (12:05)
[2021-02-05] MEDS ORDERED: HYDR25TA87 PO (12:05)
[2021-02-05] MEDS ORDERED: AZIT500T PO (12:05)
[2021-02-05 13:24] VITALS: BP 128/77
== END 2021-02-05 13:57 | disposition home health service (06) | DRG 304 ==
LOC: ER 20:03 → TELE 02-02 03:22 → TELE-WESTW 02-02 07:59
PROVIDERS: ADMIT Nurse Practitioner Family; ATTEND Internal Medicine
DX: I16.0 Hypertensive urgency (principal); J96.21 Acute and chronic respiratory failure with hypoxia; J44.1 Chronic obstructive pulmonary disease with (acute) exacerbation; F10.99 Alcohol use, unspecified with unspecified alcohol-induced disorder; Z20.822 Contact with and (suspected) exposure to COVID-19; D69.59 Other secondary thrombocytopenia; I10 Essential (primary) hypertension; I44.0 Atrioventricular block, first degree; E78.5 Hyperlipidemia, unspecified; K70.30 Alcoholic cirrhosis of liver without ascites; E66.9 Obesity, unspecified; I20.9 Angina pectoris, unspecified; N40.0 Benign prostatic hyperplasia without lower urinary tract symptoms; Z79.899 Other long term (current) drug therapy; Z82.49 Family history of ischemic heart disease and other diseases of the circulatory system; Z83.3 Family history of diabetes mellitus; Z87.891 Personal history of nicotine dependence; M10.9 Gout, unspecified; Y90.9 Presence of alcohol in blood, level not specified; Z68.29 Body mass index [BMI] 29.0-29.9, adult
CPT/HCPCS: 36415; 70450; 71045; 80048; 80053; 80307; 82533; 82962; 83735; 83880; 84443; 84484; 85025; 85379; 85610; 85730; 87426; 93005; 93976; 94640; 99291; G0378; J0696

== ENCOUNTER 2021-02-11 17:10 | Inpatient (IN) | payer MEDICARE ==
[~2021-02-11] VITALS: Ht 182.9 cm; Wt 101.5 kg
[~2021-02-11 17:10] MED LIST changes: +ASPI1CHW15 PO; +AZIT500T PO; -CLON0.2T PO; +HYDR25TA87 PO; +MET25T PO; -MET50T PO; +METH4PAK PO; +NIFE1TAB31 PO
[2021-02-11] MEDS ORDERED: SODIUM CHLORIDE 0.9% 500 ML IV ONE (17:30)
[2021-02-11 17:54] LABS: Hematocrit 32.4 % (41.0-53.0); Hemoglobin 10.6 g/dL (13.5-17.5); Mean Corpuscular Hemoglobin 29.7 pg (28.0-32.0); Mean Corpuscular Hgb Conc. 32.6 g/dL (32.0-36.0); Mean Corpuscular Volume 90.9 fL (80.0-100.0); Platelet Count (auto) 102 10^3/uL (140-450); Red Blood Cells 3.57 10^6/uL (4.5-5.90); Red Cell Distribution Width 15.1 % (11.8-14.3); White Blood Cell 27.2 10^3/uL (4.4-10.8)
[2021-02-11 18:04] LABS: Basophils % (manual) 0 (0.0-2.0); Blast Cells 0; Eosinophils % (manual) 0 (0-7); Metamyelocytes % 0; Myelocytes % 0; Promyelocytes % 0; Reactive Lymphocytes 0
[2021-02-11 18:07] LABS: Albumin 2.5 g/dL (3.4-5.0); Calcium 7.3 mg/dL (8.5-10.1); Magnesium 2.3 mg/dL (1.6-2.6); Potassium 4.9 mmol/L (3.5-5.1)
[2021-02-11 18:13] LABS: Bilirubin, Total 0.6 mg/dL (0.2-1.0); Total Protein 4.6 g/dL (6.4-8.2)
[2021-02-11 18:51] LABS: Band Neutrophils % (manual) 3; Lymphocytes % (manual) 3 (10.0-50.0)
[2021-02-11 18:52] LABS: Monocytes % (manual) 4 (0-12)
[2021-02-11] MEDS ORDERED: ONDANSETRON HCL 4 MG/2 ML VIAL IV PRN (19:45)
[2021-02-11] MEDS ORDERED: NITROGLYCERIN 0.4 MG SL TAB SL PRN (19:45)
[2021-02-11] MEDS ORDERED: MORPHINE SULF INJ 2 MG/ML SYRINGE 1ML IV PRN (19:45)
[2021-02-11] MEDS ORDERED: SODIUM CHLORIDE 0.9% 1,000 ML IV ONE (19:45)
[2021-02-11] MEDS ORDERED: PANTOPRAZOLE 40mg/50ML NS AE 50 ML IV ONE (19:45)
[2021-02-11] MEDS: SODIUM CHLORIDE 0.9% 1,000 ML IV SCH (20:13)
[2021-02-11 20:19] LABS: Urine Bacteria NONE SEEN /hpf (None Seen); Urine Blood Negative /uL (Negative); Urine Mucus FEW (None Seen); Urine Specific Gravity 1.017 (1.001-1.035); Urine WBC 3 /hpf (0 - 3)
[2021-02-11 20:31] LABS: Alcohol, Urine < 3.0 mg/dL (0-10); Amphetamine Screen, Urine NEGATIVE (NEGATIVE); Barbiturate Scree,Urine NEGATIVE (NEGATIVE); Benzodiazephine Screen, Urine NEGATIVE (NEGATIVE); Cannabinoid Screen, Urine NEGATIVE (NEGATIVE); Cocaine Screen, Urine NEGATIVE (NEGATIVE); Opiate Scree,Urine NEGATIVE (NEGATIVE); Phencyclidine Screen, Urine NEGATIVE (NEGATIVE)
[2021-02-11] MEDS ORDERED: ALBUMIN 5% 250 ML IV ONE (22:00)
[2021-02-11] MEDS: SUCRALFATE 1 GM/10 ML ORAL SUSP PO SCH (22:06)
[2021-02-11 22:50] VITALS: BP 101/48
[2021-02-11 22:50] LABS: Hemoglobin 8.8 g/dL (13.5-17.5)
[2021-02-12] VITALS (96 sets, daily range): BP systolic 65–158; BP diastolic 29–87
[2021-02-12 00:24] LABS: INR 1.09 (0.9-1.15)
[2021-02-12] MEDS: SODIUM CHLORIDE 0.9% 1,000 ML IV SCH (01:02)
[2021-02-12] MEDS ORDERED: NOREPINEPHRINE 8 MG/250ML KIT 250 ML IV SCH (05:00)
[2021-02-12] MEDS ORDERED: NOREPINEPHRINE 8 MG/250ML KIT 250 ML IV ONE (05:05)
[2021-02-12] MEDS ORDERED: PHENYLEPHRINE IV 250 ML IV ONE (05:57)
[2021-02-12] MEDS: PHENYLEPHRINE IV 250 ML IV SCH ×3 (06:00→12:23)
[2021-02-12] MEDS: SUCRALFATE 1 GM/10 ML ORAL SUSP PO SCH ×4 (07:00→22:00)
[2021-02-12 07:15] LABS: Basophils # (auto) 0 10 ^3/uL (0-0.2); Basophils % (auto) 0.1 % (0.0-2.0); Eosinophils # (auto) 0 10 ^3/uL (0-0.8); Mean Corpuscular Hemoglobin 29.9 pg (28.0-32.0); Monocytes # (auto) 1.1 10 ^3/uL (0-1.3)
[2021-02-12 07:18] LABS: Lymphocytes # (auto) 1.7 10 ^3/uL (0.4-5.4); Mean Corpuscular Hgb Conc. 33.3 g/dL (32.0-36.0); Mean Corpuscular Volume 89.9 fL (80.0-100.0); Neutrophils % (auto) 86.9 % (37.0-80.0); Platelet Count (auto) 75 10^3/uL (140-450); Red Blood Cells 2.68 10^6/uL (4.5-5.90); Red Cell Distribution Width 14.8 % (11.8-14.3); White Blood Cell 21.9 10^3/uL (4.4-10.8)
[2021-02-12 07:37] LABS: INR 1.09 (0.9-1.15); Partial Thromboplastin Time 30.3 sec (23.0-31.2)
[2021-02-12 07:38] LABS: Albumin 2.2 g/dL (3.4-5.0); Calcium 6.8 mg/dL (8.5-10.1); Potassium 4.5 mmol/L (3.5-5.1)
[2021-02-12 07:42] LABS: BUN/Creatinine Ratio 107.4; Bilirubin, Total 0.5 mg/dL (0.2-1.0); Total Protein 3.9 g/dL (6.4-8.2)
[2021-02-12] MEDS: PANTOPRAZOLE 40mg/50ML NS AE 50 ML IV SCH ×3 (10:23→17:41)
[2021-02-12] MEDS ORDERED: cefTRIAXone 1GM/50ML D5W 50 ML IV ONE (10:30)
[2021-02-12] MEDS: SOD CHL 0.45% 1,000 ML IV SCH (10:34)
[2021-02-12] MEDS: ALBUMIN 25% 100 ML IV SCH ×2 (10:39→17:15)
[2021-02-12 10:51] LABS: Hemoglobin 8.4 g/dL (13.5-17.5)
[2021-02-12 10:55] LABS: Hematocrit 25.6 % (41.0-53.0); Mean Corpuscular Hemoglobin 29.5 pg (28.0-32.0); Mean Corpuscular Hgb Conc. 32.6 g/dL (32.0-36.0); Mean Corpuscular Volume 90.3 fL (80.0-100.0); Platelet Count (auto) 96 10^3/uL (140-450); Red Blood Cells 2.83 10^6/uL (4.5-5.90); Red Cell Distribution Width 14.9 % (11.8-14.3)
[2021-02-12 11:01] LABS: Basophils % (manual) 0 (0.0-2.0); Blast Cells 0; Eosinophils % (manual) 0 (0-7); Myelocytes % 0; Promyelocytes % 0; Reactive Lymphocytes 0
[2021-02-12] MEDS: metroNIDAZOLE 500MG/100ML 100 ML IV SCH ×2 (12:22→22:00)
[2021-02-12 12:57] LABS: Band Neutrophils % (manual) 2; Lymphocytes % (manual) 6 (10.0-50.0); Metamyelocytes % 1; Monocytes % (manual) 2 (0-12)
[2021-02-12 14:44] LABS: Hemoglobin 7.4 g/dL (13.5-17.5)
[2021-02-12 14:46] LABS: Hematocrit 22.5 % (41.0-53.0)
[2021-02-12] MEDS ORDERED: LIDOCAINE 1% (LOCAL ANESTH.) PF 5ml SDV ID ONE (15:15)
[2021-02-12 21:31] LABS: Hematocrit 22.2 % (41.0-53.0); Hemoglobin 7.2 g/dL (13.5-17.5)
[2021-02-12] MEDS: SODIUM CHLOR 0.9% PF (SALINE LOCK) 10ML VIAL/SYR IV SCH (22:00)
[2021-02-13] VITALS (91 sets, daily range): BP systolic 120–175; BP diastolic 62–88
[2021-02-13] MEDS: PANTOPRAZOLE 40mg/50ML NS AE 50 ML IV SCH ×4 (02:55→16:00)
[2021-02-13 03:03] LABS: Basophils # (auto) 0 10 ^3/uL (0-0.2); Basophils % (auto) 0.1 % (0.0-2.0); Eosinophils # (auto) 0.1 10 ^3/uL (0-0.8); Hemoglobin 7.6 g/dL (13.5-17.5)
[2021-02-13 03:04] LABS: Eosinophils % (auto) 0.5 % (0.0-7.0); Hematocrit 23.2 % (41.0-53.0); Lymphocytes # (auto) 1.8 10 ^3/uL (0.4-5.4); Lymphocytes % (auto) 8.7 % (10.0-50.0); Mean Corpuscular Hemoglobin 28.9 pg (28.0-32.0); Mean Corpuscular Hgb Conc. 32.8 g/dL (32.0-36.0); Mean Corpuscular Volume 88.2 fL (80.0-100.0); Monocytes % (auto) 4.8 % (0.0-12.0); Neutrophils % (auto) 85.9 % (37.0-80.0); Platelet Count (auto) 77 10^3/uL (140-450); Red Blood Cells 2.62 10^6/uL (4.5-5.90); Red Cell Distribution Width 15.6 % (11.8-14.3); White Blood Cell 20.9 10^3/uL (4.4-10.8)
[2021-02-13] MEDS: PHENYLEPHRINE IV 250 ML IV SCH ×3 (03:06→23:40)
[2021-02-13] MEDS: ALBUMIN 25% 100 ML IV SCH (03:06)
[2021-02-13] MEDS: MORPHINE SULF INJ 2 MG/ML SYRINGE 1ML IV PRN ×2 (03:08→20:54)
[2021-02-13] MEDS: SOD CHL 0.45% 1,000 ML IV SCH ×3 (03:14→21:10)
[2021-02-13 03:21] LABS: Albumin 3.2 g/dL (3.4-5.0); BUN/Creatinine Ratio 101.9; Calcium 7.4 mg/dL (8.5-10.1); Potassium 4.4 mmol/L (3.5-5.1)
[2021-02-13 03:24] LABS: Bilirubin, Total 0.6 mg/dL (0.2-1.0); Total Protein 5.1 g/dL (6.4-8.2)
[2021-02-13] MEDS: metroNIDAZOLE 500MG/100ML 100 ML IV SCH ×3 (05:22→21:02)
[2021-02-13] MEDS: SUCRALFATE 1 GM/10 ML ORAL SUSP PO SCH ×4 (06:10→21:02)
[2021-02-13] MEDS ORDERED: LIDOCAINE VISCOUS 2% 15ML UD ONE (08:07)
[2021-02-13] MEDS ORDERED: SODIUM CHLORIDE LOCK 10 ML ONE (08:07)
[2021-02-13] MEDS ORDERED: diphenhdrAMINE HCL 50 MG/1 ML VL ONE (08:08)
[2021-02-13] MEDS: cefTRIAXone 1GM/50ML D5W 50 ML IV SCH (08:58)
[2021-02-13 09:29] LABS: Hematocrit 23.8 % (41.0-53.0); Hemoglobin 7.8 g/dL (13.5-17.5)
[2021-02-13] MEDS: SODIUM CHLOR 0.9% PF (SALINE LOCK) 10ML VIAL/SYR IV SCH ×2 (10:00→21:02)
[2021-02-13] MEDS: MIDAZOLAM HCL 5 MG/ML-1ML VIAL ONE ×4 (14:16→14:26)
[2021-02-13] MEDS: fentaNYL CITRATE 100 MCG/2 ML VL ONE ×2 (14:16→14:19)
[2021-02-13 18:24] LABS: Hematocrit 21.2 % (41.0-53.0); Hemoglobin 7.1 g/dL (13.5-17.5)
[2021-02-14] VITALS (74 sets, daily range): BP systolic 112–183; BP diastolic 56–92
[2021-02-14] MEDS: PANTOPRAZOLE 40mg/50ML NS AE 50 ML IV SCH ×6 (00:34→20:45)
[2021-02-14] MEDS ORDERED: dilTIAZem 25 MG/5 ML VIAL IV ONE (01:30)
[2021-02-14] MEDS: metroNIDAZOLE 500MG/100ML 100 ML IV SCH ×3 (05:24→21:32)
[2021-02-14] MEDS: SUCRALFATE 1 GM/10 ML ORAL SUSP PO SCH ×4 (06:08→21:33)
[2021-02-14 06:35] LABS: Hemoglobin 7.6 g/dL (13.5-17.5)
[2021-02-14 06:37] LABS: Hematocrit 22.8 % (41.0-53.0); Mean Corpuscular Hemoglobin 29.6 pg (28.0-32.0); Mean Corpuscular Hgb Conc. 33.4 g/dL (32.0-36.0); Mean Corpuscular Volume 88.4 fL (80.0-100.0); Platelet Count (auto) 61 10^3/uL (140-450); Red Blood Cells 2.57 10^6/uL (4.5-5.90); Red Cell Distribution Width 15.3 % (11.8-14.3); White Blood Cell 15.3 10^3/uL (4.4-10.8)
[2021-02-14 06:52] LABS: Albumin 3.1 g/dL (3.4-5.0); Calcium 7.9 mg/dL (8.5-10.1); Potassium 4.3 mmol/L (3.5-5.1)
[2021-02-14 06:53] LABS: Basophils % (manual) 0 (0.0-2.0); Blast Cells 0; Eosinophils % (manual) 0 (0-7); Metamyelocytes % 0; Promyelocytes % 0; Reactive Lymphocytes 0
[2021-02-14 06:57] LABS: BUN/Creatinine Ratio 62.4; Bilirubin, Total 0.5 mg/dL (0.2-1.0); Total Protein 4.9 g/dL (6.4-8.2)
[2021-02-14] MEDS: PHENYLEPHRINE IV 250 ML IV SCH ×3 (08:00→23:25)
[2021-02-14 08:06] LABS: Band Neutrophils % (manual) 3; Lymphocytes % (manual) 13 (10.0-50.0); Monocytes % (manual) 4 (0-12); Myelocytes % 2
[2021-02-14] MEDS: cefTRIAXone 1GM/50ML D5W 50 ML IV SCH (09:03)
[2021-02-14] MEDS: SODIUM CHLOR 0.9% PF (SALINE LOCK) 10ML VIAL/SYR IV SCH ×2 (09:44→21:32)
[2021-02-14] MEDS ORDERED: FUROSEMIDE 40 MG/4 ML VIAL IV ONE (09:45)
[2021-02-14 11:00] LABS: Hematocrit 21.1 % (41.0-53.0)
[2021-02-14 11:03] LABS: Hemoglobin 6.8 g/dL (13.5-17.5)
[2021-02-14] MEDS: SODIUM FERR GLUC 62.5MG/5ML 125 MG in SODIUM CHL 0.9% 100 ML IV SCH (12:04)
[2021-02-14] MEDS ORDERED: IOHEXOL 350 MG/ML 100ML IJ ONE (16:38)
[2021-02-14] MEDS: FINASTERIDE 5 MG TAB PO SCH (17:55)
[2021-02-14 22:21] LABS: Hematocrit 21.6 % (41.0-53.0)
[2021-02-14 22:22] LABS: Hemoglobin 7.3 g/dL (13.5-17.5)
[2021-02-15] VITALS (79 sets, daily range): BP systolic 108–153; BP diastolic 61–90
[2021-02-15] MEDS: PANTOPRAZOLE 40mg/50ML NS AE 50 ML IV SCH ×5 (03:53→22:39)
[2021-02-15 05:23] LABS: Hemoglobin 7.3 g/dL (13.5-17.5); Mean Corpuscular Hemoglobin 29.5 pg (28.0-32.0); Red Blood Cells 2.48 10^6/uL (4.5-5.90); Red Cell Distribution Width 14.8 % (11.8-14.3)
[2021-02-15 05:24] LABS: Hematocrit 21.9 % (41.0-53.0); Mean Corpuscular Hgb Conc. 33.4 g/dL (32.0-36.0); Mean Corpuscular Volume 88.4 fL (80.0-100.0); Platelet Count (auto) 61 10^3/uL (140-450); White Blood Cell 15.3 10^3/uL (4.4-10.8)
[2021-02-15 05:37] LABS: Basophils % (manual) 0 (0.0-2.0); Blast Cells 0; Eosinophils % (manual) 0 (0-7); Promyelocytes % 0; Reactive Lymphocytes 0
[2021-02-15 05:42] LABS: Albumin 2.8 g/dL (3.4-5.0); Calcium 7.6 mg/dL (8.5-10.1); Potassium 3.8 mmol/L (3.5-5.1)
[2021-02-15 05:45] LABS: BUN/Creatinine Ratio 39.8; Bilirubin, Total 0.5 mg/dL (0.2-1.0); Total Protein 4.6 g/dL (6.4-8.2)
[2021-02-15] MEDS: SUCRALFATE 1 GM/10 ML ORAL SUSP PO SCH ×4 (05:54→22:39)
[2021-02-15] MEDS: metroNIDAZOLE 500MG/100ML 100 ML IV SCH ×3 (05:54→22:00)
[2021-02-15 06:19] LABS: Band Neutrophils % (manual) 1; Lymphocytes % (manual) 13 (10.0-50.0); Metamyelocytes % 3; Monocytes % (manual) 7 (0-12); Myelocytes % 1
[2021-02-15] MEDS ORDERED: SODIUM CHLORIDE LOCK 10 ML ONE (09:45)
[2021-02-15] MEDS ORDERED: LIDOCAINE VISCOUS 2% 15ML UD ONE (09:45)
[2021-02-15] MEDS: FINASTERIDE 5 MG TAB PO SCH (10:16)
[2021-02-15] MEDS: cefTRIAXone 1GM/50ML D5W 50 ML IV SCH (10:16)
[2021-02-15] MEDS: SODIUM CHLOR 0.9% PF (SALINE LOCK) 10ML VIAL/SYR IV SCH ×2 (10:16→22:38)
[2021-02-15] MEDS: PHENYLEPHRINE IV 250 ML IV SCH ×2 (12:12→17:20)
[2021-02-15] MEDS: SODIUM FERR GLUC 62.5MG/5ML 125 MG in SODIUM CHL 0.9% 100 ML IV SCH (12:18)
[2021-02-15] MEDS ORDERED: METOCLOPRAMIDE HCL 5MG/ml INJ 2ml VIAL IV ONE (14:00)
[2021-02-15] MEDS: diphenhdrAMINE HCL 50 MG/1 ML VL ONE ×2 (14:38→14:45)
[2021-02-15] MEDS: fentaNYL CITRATE 100 MCG/2 ML VL ONE ×2 (14:38→14:45)
[2021-02-15] MEDS: MIDAZOLAM HCL 5 MG/ML-1ML VIAL ONE ×3 (14:38→14:51)
[2021-02-15 16:13] LABS: Hematocrit 19.8 % (41.0-53.0); Mean Corpuscular Hgb Conc. 33.9 g/dL (32.0-36.0); Mean Corpuscular Volume 88.6 fL (80.0-100.0); Platelet Count (auto) 63 10^3/uL (140-450); Red Blood Cells 2.23 10^6/uL (4.5-5.90)
[2021-02-15 16:32] LABS: Band Neutrophils % (manual) 0; Basophils % (manual) 0 (0.0-2.0); Blast Cells 0; Hemoglobin 6.7 g/dL (13.5-17.5); Metamyelocytes % 0; Myelocytes % 0; Promyelocytes % 0; Reactive Lymphocytes 0
[2021-02-15 17:14] LABS: Eosinophils % (manual) 1 (0-7); Lymphocytes % (manual) 10 (10.0-50.0); Monocytes % (manual) 3 (0-12)
[2021-02-15] MEDS: OCTREOTIDE ACETATE 500 MCG in SODIUM CHL 0.9% 99 ML IV SCH (18:16)
[2021-02-16] VITALS (37 sets, daily range): BP systolic 136–166; BP diastolic 73–101
[2021-02-16] MEDS: PHENYLEPHRINE IV 250 ML IV SCH ×3 (01:40→17:04)
[2021-02-16] MEDS: MORPHINE SULF INJ 2 MG/ML SYRINGE 1ML IV PRN (03:31)
[2021-02-16] MEDS: PANTOPRAZOLE 40mg/50ML NS AE 50 ML IV SCH ×5 (03:31→22:50)
[2021-02-16] MEDS: OCTREOTIDE ACETATE 500 MCG in SODIUM CHL 0.9% 99 ML IV SCH ×3 (04:00→23:51)
[2021-02-16] MEDS: metroNIDAZOLE 500MG/100ML 100 ML IV SCH ×3 (06:01→22:26)
[2021-02-16] MEDS: SUCRALFATE 1 GM/10 ML ORAL SUSP PO SCH ×4 (06:02→22:26)
[2021-02-16 08:52] LABS: Hematocrit 24.4 % (41.0-53.0); Hemoglobin 8.4 g/dL (13.5-17.5); Mean Corpuscular Hemoglobin 30.2 pg (28.0-32.0); Mean Corpuscular Hgb Conc. 34.3 g/dL (32.0-36.0); Mean Corpuscular Volume 88.1 fL (80.0-100.0); Platelet Count (auto) 63 10^3/uL (140-450); Red Blood Cells 2.77 10^6/uL (4.5-5.90); Red Cell Distribution Width 14.4 % (11.8-14.3); White Blood Cell 10.9 10^3/uL (4.4-10.8)
[2021-02-16 08:55] LABS: Band Neutrophils % (manual) 0; Basophils % (manual) 0 (0.0-2.0); Blast Cells 0; Promyelocytes % 0; Reactive Lymphocytes 0
[2021-02-16 09:11] LABS: BUN/Creatinine Ratio 24.4; Calcium 7.7 mg/dL (8.5-10.1); Potassium 3.7 mmol/L (3.5-5.1)
[2021-02-16] MEDS: FINASTERIDE 5 MG TAB PO SCH (09:38)
[2021-02-16] MEDS: cefTRIAXone 1GM/50ML D5W 50 ML IV SCH (09:38)
[2021-02-16 09:39] LABS: Eosinophils % (manual) 1 (0-7); Lymphocytes % (manual) 10 (10.0-50.0); Metamyelocytes % 1; Monocytes % (manual) 5 (0-12); Myelocytes % 1
[2021-02-16] MEDS: SODIUM CHLOR 0.9% PF (SALINE LOCK) 10ML VIAL/SYR IV SCH ×2 (10:07→22:26)
[2021-02-16] MEDS: SODIUM FERR GLUC 62.5MG/5ML 125 MG in SODIUM CHL 0.9% 100 ML IV SCH (11:30)
[2021-02-16] MEDS ORDERED: SUCRALFATE 1 GM/10 ML ORAL SUSP PO SCH (17:00)
[2021-02-16 21:11] LABS: Hemoglobin 8.3 g/dL (13.5-17.5)
[2021-02-16 21:13] LABS: Hematocrit 24.6 % (41.0-53.0); Mean Corpuscular Hemoglobin 29.8 pg (28.0-32.0); Mean Corpuscular Hgb Conc. 33.9 g/dL (32.0-36.0); Mean Corpuscular Volume 87.9 fL (80.0-100.0); Platelet Count (auto) 69 10^3/uL (140-450); Red Cell Distribution Width 14.4 % (11.8-14.3); White Blood Cell 12.7 10^3/uL (4.4-10.8)
[2021-02-16 21:18] LABS: Basophils % (manual) 0 (0.0-2.0); Blast Cells 0; Myelocytes % 0; Promyelocytes % 0; Reactive Lymphocytes 0
[2021-02-16 22:13] LABS: Band Neutrophils % (manual) 3; Eosinophils % (manual) 1 (0-7); Lymphocytes % (manual) 5 (10.0-50.0); Metamyelocytes % 1; Monocytes % (manual) 4 (0-12)
[2021-02-16] MEDS ORDERED: TEMAZEPAM 15 MG CAP PO PRN (23:00)
[2021-02-17] MEDS: PHENYLEPHRINE IV 250 ML IV SCH ×3 (01:50→15:03)
[2021-02-17 03:00] VITALS: BP 133/74
[2021-02-17] MEDS: PANTOPRAZOLE 40mg/50ML NS AE 50 ML IV SCH ×4 (03:06→22:12)
[2021-02-17] MEDS: metroNIDAZOLE 500MG/100ML 100 ML IV SCH ×3 (08:16→21:53)
[2021-02-17] MEDS: SUCRALFATE 1 GM/10 ML ORAL SUSP PO SCH ×4 (08:22→21:54)
[2021-02-17 09:00] VITALS: BP 163/86
[2021-02-17] MEDS: OCTREOTIDE ACETATE 500 MCG in SODIUM CHL 0.9% 99 ML IV SCH ×2 (09:00→23:47)
[2021-02-17 09:06] LABS: Hematocrit 23.4 % (41.0-53.0); Hemoglobin 7.9 g/dL (13.5-17.5); Mean Corpuscular Hemoglobin 29.8 pg (28.0-32.0); Mean Corpuscular Hgb Conc. 33.7 g/dL (32.0-36.0); Mean Corpuscular Volume 88.7 fL (80.0-100.0); Platelet Count (auto) 65 10^3/uL (140-450); Red Blood Cells 2.64 10^6/uL (4.5-5.90); Red Cell Distribution Width 14.8 % (11.8-14.3); White Blood Cell 11.8 10^3/uL (4.4-10.8)
[2021-02-17 09:14] LABS: Basophils % (manual) 0 (0.0-2.0); Blast Cells 0; Promyelocytes % 0; Reactive Lymphocytes 0
[2021-02-17 09:22] LABS: Albumin 2.6 g/dL (3.4-5.0); Calcium 7.7 mg/dL (8.5-10.1); Potassium 3.5 mmol/L (3.5-5.1)
[2021-02-17 09:25] LABS: BUN/Creatinine Ratio 16.2; Bilirubin, Total 0.5 mg/dL (0.2-1.0); Total Protein 4.4 g/dL (6.4-8.2)
[2021-02-17] MEDS: cefTRIAXone 1GM/50ML D5W 50 ML IV SCH (09:56)
[2021-02-17] MEDS: SODIUM CHLOR 0.9% PF (SALINE LOCK) 10ML VIAL/SYR IV SCH ×2 (09:57→21:54)
[2021-02-17] MEDS: FINASTERIDE 5 MG TAB PO SCH (09:57)
[2021-02-17] MEDS ORDERED: METOPROLOL TARTRATE 25 MG TAB PO ONE (10:00)
[2021-02-17] MEDS ORDERED: LISINOPRIL 20 MG TAB ONE (10:48)
[2021-02-17] MEDS ORDERED: METOPROLOL TARTRATE 25 MG TAB ONE (10:48)
[2021-02-17 11:08] LABS: Band Neutrophils % (manual) 4; Eosinophils % (manual) 1 (0-7); Lymphocytes % (manual) 12 (10.0-50.0); Metamyelocytes % 1; Monocytes % (manual) 5 (0-12); Myelocytes % 1
[2021-02-17] MEDS: LISINOPRIL 20 MG TAB PO SCH (11:12)
[2021-02-17 11:38] VITALS: BP 142/77
[2021-02-17] MEDS: SODIUM FERR GLUC 62.5MG/5ML 125 MG in SODIUM CHL 0.9% 100 ML IV SCH (12:08)
[2021-02-17 14:56] VITALS: BP 164/92
[2021-02-17 16:15] VITALS: BP 147/79
[2021-02-17 22:00] VITALS: BP 155/98
[2021-02-17] MEDS: ALBUTEROL SULF 2.5 MG/0.5ML(0.5%) NEB SOLN NEB PRN (22:59)
[2021-02-17] MEDS: IPRATROPIUM BROM 0.5 MG/2.5ML INH SOL NEB PRN (22:59)
[2021-02-18 03:06] VITALS: BP 155/98
[2021-02-18 05:00] VITALS: BP 156/84
[2021-02-18] MEDS: metroNIDAZOLE 500MG/100ML 100 ML IV SCH (05:46)
[2021-02-18] MEDS: OCTREOTIDE ACETATE 500 MCG in SODIUM CHL 0.9% 99 ML IV SCH ×2 (05:46→14:59)
[2021-02-18] MEDS: PANTOPRAZOLE 40mg/50ML NS AE 50 ML IV SCH ×5 (05:46→21:00)
[2021-02-18] MEDS: SUCRALFATE 1 GM/10 ML ORAL SUSP PO SCH ×4 (05:47→21:48)
[2021-02-18 09:00] VITALS: BP 140/83
[2021-02-18 09:06] LABS: Hemoglobin 8.5 g/dL (13.5-17.5); Mean Corpuscular Hemoglobin 29.9 pg (28.0-32.0); Platelet Count (auto) 62 10^3/uL (140-450); Red Blood Cells 2.84 10^6/uL (4.5-5.90); Red Cell Distribution Width 14.8 % (11.8-14.3)
[2021-02-18] MEDS: cefTRIAXone 1GM/50ML D5W 50 ML IV SCH (09:07)
[2021-02-18 09:10] LABS: Hematocrit 25.2 % (41.0-53.0); Mean Corpuscular Hgb Conc. 33.7 g/dL (32.0-36.0); Mean Corpuscular Volume 88.6 fL (80.0-100.0); White Blood Cell 12.4 10^3/uL (4.4-10.8)
[2021-02-18 09:23] LABS: Albumin 2.7 g/dL (3.4-5.0); Calcium 7.7 mg/dL (8.5-10.1); Potassium 3.6 mmol/L (3.5-5.1)
[2021-02-18 09:27] LABS: BUN/Creatinine Ratio 9.5; Bilirubin, Total 0.6 mg/dL (0.2-1.0); Total Protein 4.7 g/dL (6.4-8.2)
[2021-02-18 09:29] LABS: Basophils % (manual) 0 (0.0-2.0); Blast Cells 0; Eosinophils % (manual) 0 (0-7); Metamyelocytes % 0; Myelocytes % 0; Promyelocytes % 0; Reactive Lymphocytes 0
[2021-02-18] MEDS ORDERED: METOPROLOL TARTRATE 25 MG TAB PO SCH (10:00)
[2021-02-18] MEDS: LISINOPRIL 20 MG TAB PO SCH (10:26)
[2021-02-18] MEDS: FINASTERIDE 5 MG TAB PO SCH (10:27)
[2021-02-18] MEDS: SODIUM CHLOR 0.9% PF (SALINE LOCK) 10ML VIAL/SYR IV SCH ×2 (10:27→21:47)
[2021-02-18] MEDS ORDERED: NIFEdipine ER 30 MG TAB PO ONE (11:00)
[2021-02-18] MEDS ORDERED: TEMAZEPAM 15 MG CAP PO PRN (11:00)
[2021-02-18 12:43] LABS: Band Neutrophils % (manual) 5; Lymphocytes % (manual) 7 (10.0-50.0); Monocytes % (manual) 3 (0-12)
[2021-02-18 13:00] VITALS: BP 141/91
[2021-02-18 16:29] VITALS: BP 157/92
[2021-02-18] MEDS: IPRATROPIUM BROM 0.5 MG/2.5ML INH SOL NEB PRN (20:00)
[2021-02-18] MEDS: ALBUTEROL SULF 2.5 MG/0.5ML(0.5%) NEB SOLN NEB PRN (20:00)
[2021-02-18] MEDS: SODIUM FERR GLUC 62.5MG/5ML 125 MG in SODIUM CHL 0.9% 100 ML IV SCH (21:47)
[2021-02-18] MEDS: METOPROLOL TARTRATE 25 MG TAB PO SCH (21:48)
[2021-02-18 22:00] VITALS: BP 134/78
[2021-02-19] MEDS: PANTOPRAZOLE 40mg/50ML NS AE 50 ML IV SCH ×2 (01:11→05:36)
[2021-02-19 05:00] VITALS: BP 134/80
[2021-02-19 05:10] LABS: Red Cell Distribution Width 15.2 % (11.8-14.3)
[2021-02-19 05:12] LABS: Hematocrit 27.3 % (41.0-53.0); Hemoglobin 9.3 g/dL (13.5-17.5); Mean Corpuscular Hemoglobin 30.5 pg (28.0-32.0); Mean Corpuscular Hgb Conc. 34.3 g/dL (32.0-36.0); Mean Corpuscular Volume 89.1 fL (80.0-100.0); Platelet Count (auto) 65 10^3/uL (140-450); Red Blood Cells 3.06 10^6/uL (4.5-5.90); White Blood Cell 10.8 10^3/uL (4.4-10.8)
[2021-02-19 05:24] LABS: Basophils % (manual) 0 (0.0-2.0); Blast Cells 0; Metamyelocytes % 0; Promyelocytes % 0; Reactive Lymphocytes 0
[2021-02-19 05:27] LABS: Albumin 2.9 g/dL (3.4-5.0); BUN/Creatinine Ratio 5.8; Calcium 7.9 mg/dL (8.5-10.1)
[2021-02-19 05:30] LABS: Bilirubin, Total 0.6 mg/dL (0.2-1.0); Total Protein 5.3 g/dL (6.4-8.2)
[2021-02-19] MEDS: OCTREOTIDE ACETATE 500 MCG in SODIUM CHL 0.9% 99 ML IV SCH ×2 (05:36→08:17)
[2021-02-19] MEDS: SUCRALFATE 1 GM/10 ML ORAL SUSP PO SCH ×4 (05:36→22:01)
[2021-02-19 05:59] LABS: Band Neutrophils % (manual) 9; Eosinophils % (manual) 2 (0-7); Lymphocytes % (manual) 14 (10.0-50.0); Monocytes % (manual) 4 (0-12); Myelocytes % 5
[2021-02-19 08:00] VITALS: BP 152/92
[2021-02-19 09:11] VITALS: BP 152/92
[2021-02-19] MEDS: PANTOPRAZOLE 80 MG in SODIUM CHL 0.9% 80 ML IV SCH ×2 (10:00→22:01)
[2021-02-19] MEDS: SODIUM CHLOR 0.9% PF (SALINE LOCK) 10ML VIAL/SYR IV SCH ×2 (10:00→22:01)
[2021-02-19] MEDS ORDERED: PANTOPRAZOLE 40 MG/10 ML VIAL INJ IV SCH (10:00)
[2021-02-19] MEDS: ALLOPURINOL 100 MG TAB PO SCH (10:00)
[2021-02-19] MEDS: NIFEdipine ER 30 MG TAB PO SCH (10:00)
[2021-02-19] MEDS: METOPROLOL TARTRATE 25 MG TAB PO SCH ×2 (10:00→22:02)
[2021-02-19] MEDS: FINASTERIDE 5 MG TAB PO SCH (11:03)
[2021-02-19] MEDS: LISINOPRIL 20 MG TAB PO SCH (11:04)
[2021-02-19 12:30] VITALS: BP 153/87
[2021-02-19] MEDS: SODIUM FERR GLUC 62.5MG/5ML 125 MG in SODIUM CHL 0.9% 100 ML IV SCH ×2 (13:55→22:01)
[2021-02-19 16:17] VITALS: BP 120/52
[2021-02-19] MEDS: IPRATROPIUM BROM 0.5 MG/2.5ML INH SOL NEB PRN (18:12)
[2021-02-19] MEDS: ALBUTEROL SULF 2.5 MG/0.5ML(0.5%) NEB SOLN NEB PRN (18:12)
[2021-02-19 22:00] VITALS: BP 133/78
[2021-02-20 05:00] VITALS: BP 140/88
[2021-02-20] MEDS: SUCRALFATE 1 GM/10 ML ORAL SUSP PO SCH ×2 (06:10→12:11)
[2021-02-20 07:15] LABS: Hematocrit 28.1 % (41.0-53.0); Hemoglobin 9.5 g/dL (13.5-17.5); Mean Corpuscular Hemoglobin 30.3 pg (28.0-32.0); Mean Corpuscular Hgb Conc. 33.9 g/dL (32.0-36.0); Mean Corpuscular Volume 89.3 fL (80.0-100.0); Platelet Count (auto) 57 10^3/uL (140-450); Red Blood Cells 3.14 10^6/uL (4.5-5.90); Red Cell Distribution Width 15.6 % (11.8-14.3); White Blood Cell 8.2 10^3/uL (4.4-10.8)
[2021-02-20 07:55] LABS: Basophils % (manual) 0 (0.0-2.0); Blast Cells 0; Metamyelocytes % 0; Myelocytes % 0; Promyelocytes % 0; Reactive Lymphocytes 0
[2021-02-20 09:03] VITALS: BP 145/80
[2021-02-20 09:33] LABS: Band Neutrophils % (manual) 3; Eosinophils % (manual) 1 (0-7); Lymphocytes % (manual) 12 (10.0-50.0); Monocytes % (manual) 6 (0-12)
[2021-02-20] MEDS ORDERED: SUCR1TAB22 PO (09:36)
[2021-02-20] MEDS ORDERED: PANT40TA2 PO (09:36)
[2021-02-20] MEDS: METOPROLOL TARTRATE 25 MG TAB PO SCH (10:00)
[2021-02-20] MEDS ORDERED: PANTOPRAZOLE 40 MG TAB PO SCH (10:00)
[2021-02-20] MEDS: SODIUM CHLOR 0.9% PF (SALINE LOCK) 10ML VIAL/SYR IV SCH (10:00)
[2021-02-20] MEDS: SODIUM FERR GLUC 62.5MG/5ML 125 MG in SODIUM CHL 0.9% 100 ML IV SCH (10:15)
[2021-02-20] MEDS: NIFEdipine ER 30 MG TAB PO SCH (10:17)
[2021-02-20] MEDS: LISINOPRIL 20 MG TAB PO SCH (10:18)
[2021-02-20] MEDS: FINASTERIDE 5 MG TAB PO SCH (10:18)
[2021-02-20] MEDS: ALLOPURINOL 100 MG TAB PO SCH (10:19)
[2021-02-20] MEDS ORDERED: FER325T PO (11:55)
[2021-02-20 12:50] VITALS: BP 123/80
[2021-02-20 15:00] VITALS: BP 123/80
[2021-02-20 16:48] VITALS: BP 146/80
[2021-02-20 21:15] VITALS: BP 141/94
== END 2021-02-20 19:55 | disposition home or self-care (01) | DRG 377 ==
LOC: EDBD 17:10 → ER 17:10 → TELE 19:42 → DOU IN ICU 22:34 → TELE-CENTR 02-17 17:05
PROVIDERS: ADMIT Nurse Practitioner Acute Care; ATTEND Internal Medicine
PROC: 30233N1 Transfusion of Nonautologous Red Blood Cells into Peripheral Vein, Percutaneous Approach (ICD-10-PCS; 2021-02-12)
PROC: 02HV33Z Insertion of Infusion Device into Superior Vena Cava, Percutaneous Approach (ICD-10-PCS; 2021-02-12)
PROC: 30233K1 Transfusion of Nonautologous Frozen Plasma into Peripheral Vein, Percutaneous Approach (ICD-10-PCS; 2021-02-13)
PROC: 3E0G8GC Introduction of Other Therapeutic Substance into Upper GI, Via Natural or Artificial Opening Endoscopic (ICD-10-PCS; 2021-02-13)
PROC: 0DB68ZX Excision of Stomach, Via Natural or Artificial Opening Endoscopic, Diagnostic (ICD-10-PCS; principal; 2021-02-13 14:19)
PROC: 0W3P8ZZ Control Bleeding in Gastrointestinal Tract, Via Natural or Artificial Opening Endoscopic (ICD-10-PCS; 2021-02-15)
DX: K26.4 Chronic or unspecified duodenal ulcer with hemorrhage (principal); E43 Unspecified severe protein-calorie malnutrition; R65.11 Systemic inflammatory response syndrome (SIRS) of non-infectious origin with acute organ dysfunction; J96.20 Acute and chronic respiratory failure, unspecified whether with hypoxia or hypercapnia; R57.8 Other shock; K22.10 Ulcer of esophagus without bleeding; J44.1 Chronic obstructive pulmonary disease with (acute) exacerbation; J45.901 Unspecified asthma with (acute) exacerbation; D62 Acute posthemorrhagic anemia; K44.9 Diaphragmatic hernia without obstruction or gangrene; K70.30 Alcoholic cirrhosis of liver without ascites; K29.70 Gastritis, unspecified, without bleeding; I95.9 Hypotension, unspecified; D69.6 Thrombocytopenia, unspecified; N40.0 Benign prostatic hyperplasia without lower urinary tract symptoms; E78.5 Hyperlipidemia, unspecified; R94.4 Abnormal results of kidney function studies; R42 Dizziness and giddiness; M10.9 Gout, unspecified; R77.8 Other specified abnormalities of plasma proteins; E66.9 Obesity, unspecified; Z20.822 Contact with and (suspected) exposure to COVID-19; Z82.49 Family history of ischemic heart disease and other diseases of the circulatory system; Z83.3 Family history of diabetes mellitus; Z87.891 Personal history of nicotine dependence
CPT/HCPCS: 36415; 36569; 36600; 43239; 43255; 51702; 71045; 74176; 80048; 80053; 80307; 81001; 82140; 82805; 83605; 83735; 84484; 84550; 85007; 85014; 85018; 85025; 85027; 85379; 85384; 85610; 85730; 86850; 86900; 86901; 86920; 87040; 87045; 87081; 87086; 87426; 87427; 93005; 94640; 96361; 96365; 97116; 97163; 97530; 99291; C9113; G0378; J0696; J2250; J3490; P9047

== ENCOUNTER → 2023-02-05 | Outpatient (CLI) | payer OTHER ==
[~2023-02-05] MED LIST changes: -ASPI1CHW15 PO; -AZIT500T PO; +FER325T PO; -MET25T PO; -METH4PAK PO; +PANT40TA2 PO; +SUCR1TAB22 PO
[2023-02-05 10:09] LABS: Urine WBC None Seen /hpf (0 - 3)
[2023-02-05 10:36] LABS: Basophils # (auto) 0 10 ^3/uL (0-0.2); Basophils % (auto) 0.2 % (0.0-2.0); Eosinophils # (auto) 0.1 10 ^3/uL (0-0.8); Eosinophils % (auto) 1.7 % (0.0-7.0); Hematocrit 46.1 % (41.0-53.0); Hemoglobin 15.2 g/dL (13.5-17.5); Lymphocytes # (auto) 1.4 10 ^3/uL (0.4-5.4); Lymphocytes % (auto) 16.2 % (10.0-50.0); Mean Corpuscular Hemoglobin 28.8 pg (28.0-32.0); Mean Corpuscular Hgb Conc. 32.9 g/dL (32.0-36.0); Mean Corpuscular Volume 87.7 fL (80.0-100.0); Monocytes # (auto) 0.4 10 ^3/uL (0-1.3); Monocytes % (auto) 4.7 % (0.0-12.0); Neutrophils # (auto) 6.5 10 ^3/uL (1.6-8.6); Neutrophils % (auto) 77.2 % (37.0-80.0); Nucleated Red Blood Cells % 0.1 %; Red Blood Cells 5.26 10^6/uL (4.5-5.90); Red Cell Distribution Width 14.8 % (11.8-14.3); White Blood Cell 8.4 10^3/uL (4.4-10.8)
[2023-02-05 10:45] LABS: Urine Bacteria NONE SEEN /hpf (None Seen); Urine Blood Negative /uL (Negative); Urine Specific Gravity 1.007 (1.001-1.035)
[2023-02-05 11:17] LABS: Albumin 3.6 g/dL (3.4-5.0); Calcium 9.3 mg/dL (8.5-10.1); Potassium 4.6 mmol/L (3.5-5.1)
[2023-02-05 11:25] LABS: BUN/Creatinine Ratio 16.5 (10.0-20.0); Bilirubin, Total 0.8 mg/dL (0.2-1.0); Total Protein 7.4 g/dL (6.4-8.2); Uric Acid 6.7 mg/dL (3.5-7.2)
== END | disposition home or self-care (01) ==
LOC: LAB 09:58
PROVIDERS: ATTEND Internal Medicine
DX: E61.2 Magnesium deficiency (principal); R68.89 Other general symptoms and signs; R94.6 Abnormal results of thyroid function studies; E79.0 Hyperuricemia without signs of inflammatory arthritis and tophaceous disease; R82.998 Other abnormal findings in urine; E55.9 Vitamin D deficiency, unspecified; R82.79 Other abnormal findings on microbiological examination of urine; D51.9 Vitamin B12 deficiency anemia, unspecified; R82.90 Unspecified abnormal findings in urine; E78.49 Other hyperlipidemia; R73.09 Other abnormal glucose
CPT/HCPCS: 36415; 80053; 80061; 81001; 82306; 82607; 83036; 84443; 84550; 85025; 87086

== ENCOUNTER → 2023-04-10 | Outpatient (CLI) | payer OTHER ==
[~2023-04-10] MED LIST changes: -LISI20TA28 PO; +LISI20TA56 PO
== END | disposition home or self-care (01) ==
LOC: RT 14:34
PROVIDERS: ATTEND Internal Medicine
DX: K92.2 Gastrointestinal hemorrhage, unspecified (principal); J44.9 Chronic obstructive pulmonary disease, unspecified; J96.10 Chronic respiratory failure, unspecified whether with hypoxia or hypercapnia; Z99.81 Dependence on supplemental oxygen
CPT/HCPCS: 36600; 82805

== ENCOUNTER → 2023-04-16 | Outpatient (CLI) | payer OTHER ==
[~2023-04-16] MED LIST changes: +ALBUTEROL SULF 2.5 MG/0.5ML(0.5%) NEB SOLN ONE
== END | disposition home or self-care (01) ==
LOC: RT 10:30
PROVIDERS: ATTEND Internal Medicine Pulmonary Disease
DX: J44.9 Chronic obstructive pulmonary disease, unspecified (principal); R06.09 Other forms of dyspnea
CPT/HCPCS: 94060; 94727; 94729

== ENCOUNTER → 2023-05-20 | Outpatient (CLI) | payer OTHER ==
[~2023-05-20] MED LIST changes: -ALBUTEROL SULF 2.5 MG/0.5ML(0.5%) NEB SOLN ONE
[2023-05-20 08:12] LABS: Basophils # (auto) 0.1 10 ^3/uL (0-0.2); Basophils % (auto) 0.8 % (0.0-2.0); Eosinophils # (auto) 0.2 10 ^3/uL (0-0.8); Eosinophils % (auto) 1.7 % (0.0-7.0); Hematocrit 44.6 % (41.0-53.0); Hemoglobin 15.1 g/dL (13.5-17.5); Lymphocytes # (auto) 1.4 10 ^3/uL (0.4-5.4); Lymphocytes % (auto) 15.1 % (10.0-50.0); Mean Corpuscular Hemoglobin 29.3 pg (28.0-32.0); Mean Corpuscular Hgb Conc. 33.8 g/dL (32.0-36.0); Mean Corpuscular Volume 86.8 fL (80.0-100.0); Monocytes # (auto) 0.5 10 ^3/uL (0-1.3); Neutrophils # (auto) 7.4 10 ^3/uL (1.6-8.6); Neutrophils % (auto) 77.4 % (37.0-80.0); Nucleated Red Blood Cells % 0.2 %; Red Blood Cells 5.13 10^6/uL (4.5-5.90); Red Cell Distribution Width 14.9 % (11.8-14.3); White Blood Cell 9.5 10^3/uL (4.4-10.8)
[2023-05-20 08:31] LABS: Urine Bacteria NONE SEEN /hpf (None Seen); Urine Blood Negative /uL (Negative); Urine Specific Gravity 1.014 (1.001-1.035); Urine WBC <1 /hpf (0 - 3)
[2023-05-20 08:45] LABS: Magnesium 2.2 mg/dL (1.6-2.6); Potassium 4.3 mmol/L (3.5-5.1)
[2023-05-20 08:51] LABS: Folate (Folic Acid) 19.54 ng/mL (5.38-24); Prostate Specific Antigen 3.32 ng/mL (0.0-4.0)
[2023-05-20 08:56] LABS: Albumin 3.6 g/dL (3.4-5.0); BUN/Creatinine Ratio 17.5 (10.0-20.0); Bilirubin, Total 0.9 mg/dL (0.2-1.0); Calcium 8.9 mg/dL (8.5-10.1); Total Protein 7.5 g/dL (6.4-8.2)
== END | disposition home or self-care (01) ==
LOC: LAB 07:53
PROVIDERS: ATTEND Internal Medicine
DX: R79.89 Other specified abnormal findings of blood chemistry (principal); D51.9 Vitamin B12 deficiency anemia, unspecified; R68.89 Other general symptoms and signs; R73.09 Other abnormal glucose; R94.6 Abnormal results of thyroid function studies; R82.90 Unspecified abnormal findings in urine; R82.79 Other abnormal findings on microbiological examination of urine
CPT/HCPCS: 36415; 80053; 80061; 81001; 82306; 82607; 82746; 83036; 83735; 84153; 84443; 84550; 85025; 87086

== ENCOUNTER → 2023-09-16 | Outpatient (CLI) | payer OTHER ==
[2023-09-16 11:58] LABS: Basophils # (auto) 0.1 10 ^3/uL (0-0.2); Basophils % (auto) 0.5 % (0.0-2.0); Eosinophils # (auto) 0.2 10 ^3/uL (0-0.8); Eosinophils % (auto) 1.4 % (0.0-7.0); Hematocrit 47.3 % (41.0-53.0); Hemoglobin 15.9 g/dL (13.5-17.5); Lymphocytes # (auto) 1.2 10 ^3/uL (0.4-5.4); Lymphocytes % (auto) 11.8 % (10.0-50.0); Mean Corpuscular Hemoglobin 29.3 pg (28.0-32.0); Mean Corpuscular Hgb Conc. 33.6 g/dL (32.0-36.0); Mean Corpuscular Volume 87.2 fL (80.0-100.0); Monocytes # (auto) 0.5 10 ^3/uL (0-1.3); Monocytes % (auto) 4.9 % (0.0-12.0); Neutrophils # (auto) 8.4 10 ^3/uL (1.6-8.6); Neutrophils % (auto) 81.4 % (37.0-80.0); Nucleated Red Blood Cells % 0.4 %; Red Blood Cells 5.43 10^6/uL (4.5-5.90); Red Cell Distribution Width 14.9 % (11.8-14.3); White Blood Cell 10.4 10^3/uL (4.4-10.8)
[2023-09-16 12:18] LABS: Urine Bacteria NONE SEEN /hpf (None Seen); Urine Blood Negative /uL (Negative); Urine Clarity Clear (Clear); Urine Hyaline Cast FEW /lpf (0 - 2); Urine Protein, UAD Negative (Negative); Urine Urobilinogen Normal (Negative); Urine WBC <1 /hpf (0 - 3)
[2023-09-16 12:26] LABS: Urine Color Straw (Yellow)
[2023-09-16 13:08] LABS: Alanine Aminotransferase 27 U/L (7-40); Albumin 4.7 g/dL (3.2-4.8); Alkaline Phosphatase 81 U/L (46-116); Anion Gap 6 (5-15); Aspartate Aminotransferase 16 U/L (13-40); BUN/Creatinine Ratio 17.6 (10.0-20.0); Blood Urea Nitrogen 21 mg/dL (9-23); Carbon Dioxide 30 mmol/L (20-30); Chloride 105 mmol/L (98-107); Cholesterol 153 mg/dL (< 200); Glucose 98 mg/dL (74-106); HDL Cholesterol 34 mg/dL (40-59); LDL Cholesterol 111 mg/dL (< 100); Potassium 4.7 mmol/L (3.5-5.1); Sodium 141 mmol/L (136-145); Triglycerides 77 mg/dL (< 150)
[2023-09-16 13:09] LABS: Bilirubin, Total 0.8 mg/dL (0.2-1.0); Total Protein 7.3 g/dL (5.7-8.2)
[2023-09-16 13:11] LABS: Folate (Folic Acid) 15.73 ng/mL (>5.38)
[2023-09-16 13:36] LABS: Uric Acid 7.1 mg/dL (3.7-9.2)
== END | disposition home or self-care (01) ==
LOC: LAB 11:40
PROVIDERS: ATTEND Internal Medicine
DX: E61.2 Magnesium deficiency (principal); R78.89 Finding of other specified substances, not normally found in blood; E78.9 Disorder of lipoprotein metabolism, unspecified; R68.89 Other general symptoms and signs; R94.6 Abnormal results of thyroid function studies; E79.0 Hyperuricemia without signs of inflammatory arthritis and tophaceous disease; R82.991 Hypocitraturia; E85.9 Amyloidosis, unspecified; R82.90 Unspecified abnormal findings in urine; R82.79 Other abnormal findings on microbiological examination of urine; D51.9 Vitamin B12 deficiency anemia, unspecified
CPT/HCPCS: 36415; 80053; 80061; 81001; 82306; 82607; 82746; 83036; 84443; 84550; 85025; 87086

== ENCOUNTER → 2023-11-09 | Outpatient (CLI) | payer OTHER | END | disposition home or self-care (01) | LOC: XYW 15:02 | PROVIDERS: ATTEND Internal Medicine | DX: I51.7 Cardiomegaly (principal); R07.9 Chest pain, unspecified | CPT/HCPCS: 93306 ==

== ENCOUNTER → 2023-11-24 | Outpatient (CLI) | payer OTHER ==
[2023-11-24 10:21] LABS: Chloride 108 mmol/L (98-107); Sodium 141 mmol/L (136-145)
[2023-11-24 10:22] LABS: Anion Gap 3 (5-15); Carbon Dioxide 30 mmol/L (20-30)
[2023-11-24 10:23] LABS: Calcium 9.7 mg/dL (8.5-10.1)
[2023-11-24 10:27] LABS: Glucose 100 mg/dL (74-106)
[2023-11-24 10:28] LABS: BUN/Creatinine Ratio 14.5 (10.0-20.0); Blood Urea Nitrogen 16 mg/dL (9-23)
[2023-11-24 11:58] LABS: Uric Acid 6.8 mg/dL (3.7-9.2)
== END | disposition home or self-care (01) ==
LOC: LAB 09:43
PROVIDERS: ATTEND Internal Medicine
DX: J44.9 Chronic obstructive pulmonary disease, unspecified (principal); R07.9 Chest pain, unspecified; N40.0 Benign prostatic hyperplasia without lower urinary tract symptoms
CPT/HCPCS: 36415; 80048; 83880; 84550; 86431

== ENCOUNTER → 2024-02-08 | Outpatient (CLI) | payer OTHER ==
[~2024-02-08] MED LIST changes: -SUCR1TAB22 PO; +SUCR1TAB31 PO
[2024-02-08 10:14] LABS: Triglycerides 86 mg/dL (< 150)
[2024-02-08 10:15] LABS: Cholesterol 179 mg/dL (< 200); LDL Cholesterol 119 mg/dL (< 100)
[2024-02-08 10:16] LABS: HDL Cholesterol 43 mg/dL (40-59)
== END | disposition home or self-care (01) ==
LOC: LAB 08:43
PROVIDERS: ATTEND Internal Medicine
DX: J44.9 Chronic obstructive pulmonary disease, unspecified (principal); E53.8 Deficiency of other specified B group vitamins; E55.9 Vitamin D deficiency, unspecified
CPT/HCPCS: 36415; 80061; 82306; 82607

== ENCOUNTER → 2024-08-01 | Outpatient (CLI) | payer OTHER ==
[~2024-08-01] MED LIST changes: +CARV3.1240 PO; +ESCI1TAB36 PO; +FURO20TA4 PO; +LOSA-534 PO; +ZOLP10TA6 PO
[2024-08-01 09:38] LABS: Basophils # (auto) 0 10 ^3/uL (0-0.2); Eosinophils # (auto) 0.1 10 ^3/uL (0-0.8); Mean Corpuscular Hemoglobin 29.5 pg (28.0-32.0); Monocytes # (auto) 0.2 10 ^3/uL (0-1.3); Neutrophils # (auto) 5.9 10 ^3/uL (1.6-8.6); Red Cell Distribution Width 15.6 % (11.8-14.3)
[2024-08-01 09:43] LABS: Basophils % (auto) 0.3 % (0.0-2.0); Eosinophils % (auto) 1.4 % (0.0-7.0); Hematocrit 41.6 % (41.0-53.0); Hemoglobin 14.1 g/dL (13.5-17.5); Lymphocytes # (auto) 1.2 10 ^3/uL (0.4-5.4); Lymphocytes % (auto) 15.7 % (10.0-50.0); Mean Corpuscular Volume 86.9 fL (80.0-100.0); Monocytes % (auto) 3.1 % (0.0-12.0); Neutrophils % (auto) 79.5 % (37.0-80.0); Nucleated Red Blood Cells % 0.1 %; Platelet Count (auto) 54 10^3/uL (140-450); Red Blood Cells 4.79 10^6/uL (4.5-5.90); White Blood Cell 7.4 10^3/uL (4.4-10.8)
[2024-08-01 10:01] LABS: Alanine Aminotransferase 31 U/L (7-40); Albumin 4.3 g/dL (3.2-4.8); Alkaline Phosphatase 91 U/L (46-116); Anion Gap 7 (5-15); Aspartate Aminotransferase 17 U/L (13-40); BUN/Creatinine Ratio 17.7 (10.0-20.0); Bilirubin, Total 0.5 mg/dL (0.2-1.0); Blood Urea Nitrogen 28 mg/dL (9-23); Carbon Dioxide 29 mmol/L (20-31); Chloride 109 mmol/L (98-107); Glucose 103 mg/dL (74-106); Potassium 4.2 mmol/L (3.5-5.1); Sodium 145 mmol/L (136-145)
[2024-08-01 10:02] LABS: Total Protein 7.1 g/dL (5.7-8.2)
[2024-08-01 11:08] LABS: Erythrocyte Sedimentation Rate 13 mm/hr (0-20)
== END | disposition home or self-care (01) ==
LOC: LAB 08:58
PROVIDERS: ATTEND Internal Medicine
DX: L03.116 Cellulitis of left lower limb (principal)
CPT/HCPCS: 36415; 80053; 85025; 85652; 86141

== ENCOUNTER 2024-08-03 12:32 | Inpatient (IN) | payer OTHER ==
[~2024-08-03] VITALS: Ht 182.9 cm; Wt 102.6 kg
[~2024-08-03 12:32] MED LIST changes: -CARV3.1240 PO; -ESCI1TAB36 PO; -FURO20TA4 PO; -LOSA-534 PO; -ZOLP10TA6 PO
[2024-08-03 13:49] LABS: Basophils # (auto) 0 10 ^3/uL (0-0.2); Basophils % (auto) 0.3 % (0.0-2.0); Eosinophils # (auto) 0.1 10 ^3/uL (0-0.8); Eosinophils % (auto) 1.2 % (0.0-7.0); Hematocrit 42.9 % (41.0-53.0); Hemoglobin 14.5 g/dL (13.5-17.5); Lymphocytes # (auto) 0.9 10 ^3/uL (0.4-5.4); Lymphocytes % (auto) 11.1 % (10.0-50.0); Mean Corpuscular Hemoglobin 29.3 pg (28.0-32.0); Mean Corpuscular Hgb Conc. 33.9 g/dL (32.0-36.0); Mean Corpuscular Volume 86.5 fL (80.0-100.0); Monocytes # (auto) 0.2 10 ^3/uL (0-1.3); Neutrophils # (auto) 6.4 10 ^3/uL (1.6-8.6); Neutrophils % (auto) 84.4 % (37.0-80.0); Nucleated Red Blood Cells % 0.1 %; Platelet Count (auto) 37 10^3/uL (140-450); Red Blood Cells 4.95 10^6/uL (4.5-5.90); Red Cell Distribution Width 15.7 % (11.8-14.3); White Blood Cell 7.6 10^3/uL (4.4-10.8)
[2024-08-03 14:01] LABS: Alanine Aminotransferase 38 U/L (7-40); Albumin 4.4 g/dL (3.2-4.8); Alkaline Phosphatase 92 U/L (46-116); Anion Gap 4 (5-15); Aspartate Aminotransferase 25 U/L (13-40); BUN/Creatinine Ratio 14.8 (10.0-20.0); Bilirubin, Total 0.6 mg/dL (0.2-1.0); Blood Urea Nitrogen 22 mg/dL (9-23); CRP High Sensitivity 0.48 mg/dL (<1.0); Calcium 9.8 mg/dL (8.7-10.4); Carbon Dioxide 29 mmol/L (20-31); Chloride 109 mmol/L (98-107); Glucose 98 mg/dL (74-106); Potassium 4.4 mmol/L (3.5-5.1); Sodium 142 mmol/L (136-145); Total Protein 7.3 g/dL (5.7-8.2)
[2024-08-03 14:17] LABS: Platelet Estimate Decreased
[2024-08-03 14:18] LABS: Anisocytosis Moderate; Ovalocytes FEW; Tear Drop Cells FEW
[2024-08-03 14:21] LABS: Erythrocyte Sedimentation Rate 10 mm/hr (0-20)
[2024-08-03] MEDS ORDERED: VANCOMYCIN PER PHARMACY 0 MG IV SCH (14:45)
[2024-08-03] MEDS ORDERED: ONDANSETRON HCL 4 MG/2 ML VIAL IV PRN (15:15)
[2024-08-03] MEDS ORDERED: MORPHINE SULFATE INJ 2 MG/ml SYRG IV PRN (15:15)
[2024-08-03] MEDS ORDERED: HYDROcodone-ACET 5/325MG TAB PO PRN (15:15)
[2024-08-03] MEDS: PIPERACILLIN-TAZOB 3.375GM 100 ML IV ONE (15:25)
[2024-08-03 16:32] VITALS: PULSE 60; RESP 17; O2SAT 95
[2024-08-03] MEDS ORDERED: CARV3.1240 PO (16:37)
[2024-08-03] MEDS ORDERED: LOSA-534 PO (16:37)
[2024-08-03] MEDS ORDERED: ESCI1TAB36 PO (16:37)
[2024-08-03] MEDS ORDERED: ZOLP10TA6 PO (16:37)
[2024-08-03] MEDS ORDERED: FURO20TA4 PO (16:37)
[2024-08-03] MEDS: VANCOMYCIN 1GM/200ML PREMIX 250 ML IV SCH (16:55)
[2024-08-03 21:38] VITALS: BP 154/82; PULSE 67; RESP 18; TEMP 97.8; O2SAT 96
[2024-08-03] MEDS: PIPERACILLIN-TAZOB 3.375GM 100 ML IV SCH (22:00)
[2024-08-03] MEDS: PANTOPRAZOLE 40 MG TAB PO SCH (22:00)
[2024-08-04] VITALS (10 sets, daily range): BP systolic 130–158; BP diastolic 64–86; PULSE 59–81; RESP 16–20; TEMP 97.4–98.7; O2SAT 19–97
[2024-08-04 06:55] LABS: Anion Gap 7 (5-15); Carbon Dioxide 26 mmol/L (20-31); Chloride 109 mmol/L (98-107); Potassium 3.9 mmol/L (3.5-5.1); Sodium 142 mmol/L (136-145)
[2024-08-04] MEDS: ALLOPURINOL 100 MG TAB PO SCH (06:56)
[2024-08-04 06:57] LABS: Calcium 9.2 mg/dL (8.7-10.4)
[2024-08-04 07:01] LABS: Glucose 85 mg/dL (74-106)
[2024-08-04 07:02] LABS: BUN/Creatinine Ratio 16.4 (10.0-20.0); Blood Urea Nitrogen 22 mg/dL (9-23)
[2024-08-04 07:12] LABS: Basophils # (auto) 0 10 ^3/uL (0-0.2); Basophils % (auto) 0.3 % (0.0-2.0); Eosinophils # (auto) 0.1 10 ^3/uL (0-0.8); Eosinophils % (auto) 1.7 % (0.0-7.0); Hematocrit 38.9 % (41.0-53.0); Hemoglobin 13.3 g/dL (13.5-17.5); Lymphocytes % (auto) 15.7 % (10.0-50.0); Mean Corpuscular Hemoglobin 29.2 pg (28.0-32.0); Mean Corpuscular Hgb Conc. 34.1 g/dL (32.0-36.0); Mean Corpuscular Volume 85.7 fL (80.0-100.0); Monocytes # (auto) 0.3 10 ^3/uL (0-1.3); Monocytes % (auto) 4.1 % (0.0-12.0); Neutrophils % (auto) 78.2 % (37.0-80.0); Nucleated Red Blood Cells % 0.4 %; Platelet Count (auto) 32 10^3/uL (140-450); Red Blood Cells 4.54 10^6/uL (4.5-5.90); Red Cell Distribution Width 15.4 % (11.8-14.3); White Blood Cell 6.5 10^3/uL (4.4-10.8)
[2024-08-04] MEDS: FINASTERIDE 5 MG TAB PO SCH (10:20)
[2024-08-04] MEDS: NIFEdipine ER 30 MG TAB PO SCH ×2 (10:21→22:55)
[2024-08-04] MEDS ORDERED: ALBUTEROL SULF 2.5 MG/0.5ML(0.5%) NEB SOLN NEB PRN (12:15)
[2024-08-04] MEDS ORDERED: IPRATROPIUM BROM 0.5 MG/2.5ML INH SOL NEB PRN (12:15)
[2024-08-04] MEDS: VANCOMYCIN 1GM/200ML PREMIX 250 ML IV ONE (16:01)
[2024-08-04] MEDS: NIFEdipine ER 30 MG TAB PO ONE (17:10)
[2024-08-04] MEDS: CARVEDILOL 3.125 MG TAB PO SCH (22:56)
[2024-08-04] MEDS: DOXAZOSIN MESYL 2 MG TAB PO SCH (22:57)
[2024-08-05] VITALS (7 sets, daily range): BP systolic 115–146; BP diastolic 72–86; PULSE 62–69; RESP 16–20; TEMP 97.8–98.5; O2SAT 95–97
[2024-08-05] MEDS: ALLOPURINOL 100 MG TAB PO SCH (05:48)
[2024-08-05 06:56] LABS: Chloride 107 mmol/L (98-107); Potassium 4.3 mmol/L (3.5-5.1); Sodium 141 mmol/L (136-145)
[2024-08-05 06:57] LABS: Anion Gap 3 (5-15); Carbon Dioxide 31 mmol/L (20-31)
[2024-08-05 06:59] LABS: Basophils # (auto) 0 10 ^3/uL (0-0.2); Eosinophils # (auto) 0.1 10 ^3/uL (0-0.8); Monocytes # (auto) 0.3 10 ^3/uL (0-1.3); Platelet Count (auto) 26 10^3/uL (140-450); Red Cell Distribution Width 15.1 % (11.8-14.3)
[2024-08-05 07:02] LABS: Glucose 88 mg/dL (74-106)
[2024-08-05 07:03] LABS: Basophils % (auto) 0.5 % (0.0-2.0); Blood Urea Nitrogen 19 mg/dL (9-23); Eosinophils % (auto) 2.2 % (0.0-7.0); Hemoglobin 13.2 g/dL (13.5-17.5); Lymphocytes # (auto) 1.2 10 ^3/uL (0.4-5.4); Lymphocytes % (auto) 20.8 % (10.0-50.0); Magnesium 1.9 mg/dL (1.6-2.6); Mean Corpuscular Hgb Conc. 33.9 g/dL (32.0-36.0); Mean Corpuscular Volume 85.7 fL (80.0-100.0); Monocytes % (auto) 5.1 % (0.0-12.0); Neutrophils # (auto) 4.1 10 ^3/uL (1.6-8.6); Neutrophils % (auto) 71.4 % (37.0-80.0); Nucleated Red Blood Cells % 0.1 %; Red Blood Cells 4.55 10^6/uL (4.5-5.90); White Blood Cell 5.8 10^3/uL (4.4-10.8)
[2024-08-05 07:05] LABS: Phosphorus 3.2 mg/dL (2.4-5.1)
[2024-08-05] MEDS ORDERED: DOXY-286 PO (09:45)
[2024-08-05] MEDS ORDERED: [UNRECOGNIZED DRUG - CODE] XX (09:45)
[2024-08-05] MEDS ORDERED: AMOX875T3 PO (09:45)
[2024-08-05] MEDS: FUROSEMIDE 20 MG TAB PO SCH (10:25)
[2024-08-05] MEDS: LOSARTAN POTASSIUM 50 MG TAB PO SCH (10:26)
[2024-08-05] MEDS: VANCOMYCIN 1GM/200ML PREMIX IV ONE (12:29)
== END 2024-08-05 15:20 | disposition home or self-care (01) | DRG 553 ==
LOC: ER 12:32 → OVERFLOW 15:19 → CENTRAL 21:12
PROVIDERS: ADMIT Registered Nurse General Practice; ATTEND Student in an Organized Health Care Education/Training Program
DX: M10.072 Idiopathic gout, left ankle and foot (principal); N17.0 Acute kidney failure with tubular necrosis; I50.32 Chronic diastolic (congestive) heart failure; D69.6 Thrombocytopenia, unspecified; G47.00 Insomnia, unspecified; I11.0 Hypertensive heart disease with heart failure; I87.8 Other specified disorders of veins; J44.9 Chronic obstructive pulmonary disease, unspecified; N40.0 Benign prostatic hyperplasia without lower urinary tract symptoms; Z83.3 Family history of diabetes mellitus; Z82.49 Family history of ischemic heart disease and other diseases of the circulatory system; Z79.899 Other long term (current) drug therapy
CPT/HCPCS: 36415; 80048; 80053; 80202; 83605; 83735; 83880; 84100; 85025; 85652; 86141; 87040; 93926; 93970; G0378; J2543

== ENCOUNTER → 2024-08-25 | Outpatient (CLI) | payer OTHER ==
[~2024-08-25] MED LIST changes: +AMOX875T3 PO; +CARV3.1240 PO; +DOXY-286 PO; +ESCI1TAB36 PO; +FURO20TA4 PO; +LOSA-534 PO; +ZOLP10TA6 PO; +[UNRECOGNIZED DRUG - CODE] XX
[2024-08-25 10:44] LABS: Basophils # (auto) 0 10 ^3/uL (0-0.2); Basophils % (auto) 0.4 % (0.0-2.0); Eosinophils # (auto) 0.1 10 ^3/uL (0-0.8); Hematocrit 44.2 % (41.0-53.0); Hemoglobin 14.5 g/dL (13.5-17.5); Lymphocytes # (auto) 1.5 10 ^3/uL (0.4-5.4); Lymphocytes % (auto) 19.4 % (10.0-50.0); Mean Corpuscular Hemoglobin 28.5 pg (28.0-32.0); Mean Corpuscular Hgb Conc. 32.7 g/dL (32.0-36.0); Monocytes # (auto) 0.5 10 ^3/uL (0-1.3); Monocytes % (auto) 6.1 % (0.0-12.0); Neutrophils # (auto) 5.4 10 ^3/uL (1.6-8.6); Neutrophils % (auto) 72.1 % (37.0-80.0); Nucleated Red Blood Cells % 0.1 %; Platelet Count (auto) 89 10^3/uL (140-450); Red Blood Cells 5.08 10^6/uL (4.5-5.90); Red Cell Distribution Width 16.4 % (11.8-14.3); White Blood Cell 7.5 10^3/uL (4.4-10.8)
[2024-08-25 11:07] LABS: Erythrocyte Sedimentation Rate 9 mm/hr (0-20)
== END | disposition home or self-care (01) ==
LOC: LAB 09:55
PROVIDERS: ATTEND Internal Medicine
DX: L03.116 Cellulitis of left lower limb (principal); D69.6 Thrombocytopenia, unspecified
CPT/HCPCS: 36415; 84550; 85025; 85652

== ENCOUNTER → 2024-09-26 | Outpatient (CLI) | payer OTHER ==
[~2024-09-26] MED LIST changes: -ALFU10TA10 PO; -AMOX875T3 PO; -BUDE1AER4 IN; +COLC1CAP PO; -DOXY-286 PO; -FER325T PO; -FLUO-126 PO; +FLUT1AER17 IN; -HYDR25TA87 PO; +IPR002IS HHN; -LISI20TA56 PO; +MONT-8 OR; +NIFE1TAB30 PO; -NIFE1TAB31 PO; -PANT40TA2 PO; -SUCR1TAB31 PO; -TIOT17SP IN; -ZOLP10TA6 PO; -[UNRECOGNIZED DRUG - CODE] XX
[2024-09-26 10:02] LABS: Basophils # (auto) 0 10 ^3/uL (0-0.2); Basophils % (auto) 0.6 % (0.0-2.0); Eosinophils # (auto) 0.2 10 ^3/uL (0-0.8); Hematocrit 39.5 % (41.0-53.0); Hemoglobin 13.3 g/dL (13.5-17.5); Lymphocytes # (auto) 1.3 10 ^3/uL (0.4-5.4); Lymphocytes % (auto) 17.8 % (10.0-50.0); Mean Corpuscular Hemoglobin 29.1 pg (28.0-32.0); Mean Corpuscular Hgb Conc. 33.7 g/dL (32.0-36.0); Mean Corpuscular Volume 86.4 fL (80.0-100.0); Monocytes # (auto) 0.4 10 ^3/uL (0-1.3); Monocytes % (auto) 4.8 % (0.0-12.0); Neutrophils # (auto) 5.6 10 ^3/uL (1.6-8.6); Neutrophils % (auto) 74.8 % (37.0-80.0); Nucleated Red Blood Cells % 0.2 %; Platelet Count (auto) 67 10^3/uL (140-450); Red Blood Cells 4.57 10^6/uL (4.5-5.90); Red Cell Distribution Width 16.1 % (11.8-14.3); White Blood Cell 7.5 10^3/uL (4.4-10.8)
[2024-09-26 11:23] LABS: Erythrocyte Sedimentation Rate 11 mm/hr (0-20)
== END | disposition home or self-care (01) ==
LOC: LAB 08:42
PROVIDERS: ATTEND Internal Medicine
DX: M10.9 Gout, unspecified (principal); D69.6 Thrombocytopenia, unspecified
CPT/HCPCS: 36415; 85025; 85652; 86141

== ENCOUNTER 2024-09-30 09:08 | Day surgery (SDC) | payer OTHER ==
[2024-09-23 13:54] LABS: Urine Bacteria None Seen /hpf (None Seen)
[2024-09-23 14:04] LABS: Basophils # (auto) 0.1 10 ^3/uL (0-0.2); Basophils % (auto) 0.9 % (0.0-2.0); Eosinophils # (auto) 0.2 10 ^3/uL (0-0.8); Eosinophils % (auto) 2.1 % (0.0-7.0); Hematocrit 42.6 % (41.0-53.0); Hemoglobin 14.4 g/dL (13.5-17.5); Lymphocytes # (auto) 1.6 10 ^3/uL (0.4-5.4); Lymphocytes % (auto) 17.8 % (10.0-50.0); Mean Corpuscular Hemoglobin 29.2 pg (28.0-32.0); Mean Corpuscular Hgb Conc. 33.8 g/dL (32.0-36.0); Mean Corpuscular Volume 86.3 fL (80.0-100.0); Monocytes # (auto) 0.4 10 ^3/uL (0-1.3); Monocytes % (auto) 4.7 % (0.0-12.0); Neutrophils # (auto) 6.8 10 ^3/uL (1.6-8.6); Neutrophils % (auto) 74.5 % (37.0-80.0); Platelet Count (auto) 76 10^3/uL (140-450); Red Blood Cells 4.94 10^6/uL (4.5-5.90); Red Cell Distribution Width 16.1 % (11.8-14.3); White Blood Cell 9.2 10^3/uL (4.4-10.8)
[2024-09-23 14:15] LABS: Urine Blood Negative /uL (Negative); Urine Clarity Turbid (Clear); Urine Color Yellow (Yellow); Urine Hyaline Cast MANY /lpf (0 - 2); Urine Mucus FEW (None Seen); Urine Protein, UAD 1+ (Negative); Urine Specific Gravity 1.021 (1.001-1.035); Urine Urobilinogen 3 mg/dL (Negative); Urine WBC 2 /hpf (0 - 3)
[2024-09-23 14:28] LABS: INR 1.03 (0.9-1.15); Partial Thromboplastin Time 27.6 SEC (24.5-34.5); Prothrombin Time 10.9 sec (9.3-11.8)
[2024-09-23 14:38] LABS: Alanine Aminotransferase 31 U/L (7-40); Albumin 4.7 g/dL (3.2-4.8); Alkaline Phosphatase 94 U/L (46-116); Anion Gap 6 (5-15); Aspartate Aminotransferase 18 U/L (13-40); BUN/Creatinine Ratio 15.3 (10.0-20.0); Calcium 10.3 mg/dL (8.7-10.4); Chloride 104 mmol/L (98-107); Glucose 87 mg/dL (74-106); Potassium 4.7 mmol/L (3.5-5.1); Sodium 142 mmol/L (136-145); Total Protein 7.8 g/dL (5.7-8.2)
[2024-09-23 14:53] LABS: Blood Urea Nitrogen 27 mg/dL (9-23); Carbon Dioxide 32 mmol/L (20-31)
[~2024-09-30] VITALS: Ht 182.9 cm; Wt 102.1 kg
[2024-09-30] MEDS ORDERED: PROPOFOL 10 MG/ML 20 ML IV ONE ×3 (12:24→12:59)
[2024-09-30] MEDS ORDERED: LIDOCAINE 2% (LOCAL ANESTH.) PF 5ml SDV ONE (12:24)
[2024-09-30 13:06] VITALS: PULSE 69; RESP 15; TEMP 97.9; O2SAT 97
--- NOTE | 2024-09-30 13:21 | DVHOP2 ---
Operative Report DATE OF OPERATION: 09/30/24 PROCEDURE: Upper Endoscopy with biopsy. PREOPERATIVE INDICATION: The patient is a 68 -year-old male undergoing endoscopy for re-evaluation of history of large duodenal ulcer POSTOPERATIVE DIAGNOSES: 1. 2 cm sliding-type hiatal hernia with slightly irregular squamocolumnar ju nction no significant erosive esophagitis 2. Putp-ke-zpuktyie duodenitis of the duodenal bulb otherwise normal examination up to the 2nd and 3rd part of the duodenum. The duodenal bulb ulcer healed PROCEDURE PERFORMED BY: Ana Lane GI NURSE: Fariha SCOPE: Olympus videoendoscope. ASA CLASS: 3. PREOPERATIVE MEDICATIONS: Mac sedation, Bandar Saregnt PROCEDURE IN DETAIL: After obtaining an informed consent, the patient was placed on left lateral decubitus position. The patient was then sedated with the above medications. A bite block was placed between his teeth. The endoscope was then passed through the oropharynx, into the esophagus, and through the stomach and pylorus up to the second and third part of the duodenum. The endoscope was then withdrawn. The 2nd and 3rd part of the duodenum were normal and the duodenal bulb showed bpoj-bf-uwsibsmr duodenitis with some hyperemia and mucosal edema There was no residual ulceration at this time. The pre-pyloric area antrum and body were essentially normal. On retroflexion the fundus and cardia were normal. Duodenal and gastric biopsies were obtained. The endoscope was then withdrawn into the distal esophagus. Patient had a 2 cm sliding-type hiatal hernia with slightly irregular squamocolumnar junction but no significant esophagitis The remaining distal and proximal esophagus and oropharynx were unremarkable The patient tolerated the procedure well without difficulty. COMPLICATIONS : None SPECIMENS: Duodenal biopsies Gastric biopsies DISPOSITION: Stable D/C to home PLAN: 1. Await for biopsy result 2. Will place pt on Protonix 40 mg p.o. daily 3. Lifestyle and dietary modifications for GERD 4. Resume GI soft diet advance as tolerated 5. Outpatient follow up with me in 4-6 weeks to review results and discuss further management ANA LANE MD Sep 30, 2024 13:21
--- NOTE | 2024-09-30 13:26 | DVHOP2 ---
Operative Report DATE OF OPERATION: 09/30/24 PROCEDURE: Colonoscopy with snare polypectomy. PREOPERATIVE INDICATION: The patient is a 68 -year-old male undergoing colonoscopy for surveillance with personal history of colon polyps POSTOPERATIVE DIAGNOSES: 1. Two less than 1 cm benign-appearing ascending colon polyps were seen by cold biopsy forceps and one by snare polypectomy 2. There were two less than 1 cm benign-appearing transverse colon polyps that were seen and removed by snare polypectomy and the specimens were retrieved 3. Patient had a 5 mm benign-appearing rectosigmoid polyp that was seen and removed by snare polypectomy 4. Mild sigmoiditis ,small internal hemorrhoids otherwise essentially normal exam to terminal ileum PROCEDURE PERFORMED BY: Ana Lane M.D. SCOPE: Olympus videocolonoscope. ASA CLASS: 3. PREOPERATIVE MEDICATIONS: Mac sedation Bandar Arie PROCEDURE IN DETAIL: After obtaining an informed consent, the patient was placed on left lateral decubitus position. He was then sedated with the above medications. A rectal examination was performed that was normal. The colonoscope was then passed through the anus into the rectosigmoid and through the descending, transverse, and ascending colon up to the cecum with visualization of the appendiceal orifice, base of the cecum and the ileocecal valve. The colonoscope was then withdrawn. The distal 5-10 cm of the terminal ileum were normal. There were two less than 1 cm benign-appearing ascending colon polyps. One was removed by snare polypectomy but the specimen could not be retrieved Another smaller one was removed by cold biopsy forceps. In the transverse colon there were three less than 1 cm benign-appearing transverse colon polyps These were removed by snare polypectomy and a couple of specimens were re trieved. In the rectosigmoid there was another 5 mm benign-appearing polyp. This was removed by snare polypectomy and the specimens were retrieved. Patient had mild sigmoiditis but no clear-cut diverticular disease On retroflexion and straight on view patient had trace to 1+ internal hemorrhoids. The patient tolerated the procedure well without difficulty. WITHDRAWAL TIME: 17 minutes QUALITY OF THE PREP: [place] Bowel Prep score: 8. COMPLICATIONS : None SPECIMENS: Ascending colon polyps Transverse colon polyps Rectosigmoid polyp DISPOSITION: Stable D/C to home PLAN: 1. Repeat colonoscopy base on biopsy result likely in 3-5 years 2. Resume GI soft diet advance as tolerated 3. Hold aspirin NSAIDs blood thinners for one week 4. Outpatient follow up with me in 4-6 weeks to review results and discuss further management ANA LANE MD Sep 30, 2024 13:26
[2024-09-30 13:35] VITALS: BP 129/74; PULSE 61; RESP 15; O2SAT 96
== END 2024-09-30 13:50 | disposition home or self-care (01) ==
LOC: GI 09:08
PROVIDERS: ATTEND Internal Medicine Gastroenterology
DX: Z12.11 Encounter for screening for malignant neoplasm of colon (principal); K21.9 Gastro-esophageal reflux disease without esophagitis; D12.2 Benign neoplasm of ascending colon; D12.3 Benign neoplasm of transverse colon; D12.8 Benign neoplasm of rectum; K29.50 Unspecified chronic gastritis without bleeding; K26.9 Duodenal ulcer, unspecified as acute or chronic, without hemorrhage or perforation; K29.80 Duodenitis without bleeding; K44.9 Diaphragmatic hernia without obstruction or gangrene; K52.9 Noninfective gastroenteritis and colitis, unspecified; K64.8 Other hemorrhoids; Z86.0100 Personal history of colon polyps, unspecified; I10 Essential (primary) hypertension; J44.9 Chronic obstructive pulmonary disease, unspecified; Z79.899 Other long term (current) drug therapy; Z87.891 Personal history of nicotine dependence; Z98.41 Cataract extraction status, right eye; Z98.42 Cataract extraction status, left eye
CPT/HCPCS: 36415; 43239; 45380; 45385; 80053; 81001; 85025; 85610; 85730; 88305; 88312; 88342; J2003; J2704; J7030

== ENCOUNTER → 2025-01-02 | Outpatient (CLI) | payer OTHER ==
[2025-01-02 10:23] LABS: Basophils # (auto) 0.2 10 ^3/uL (0-0.2); Basophils % (auto) 1.4 % (0.0-2.0); Eosinophils # (auto) 0.2 10 ^3/uL (0-0.8); Eosinophils % (auto) 1.7 % (0.0-7.0); Hematocrit 41.8 % (41.0-53.0); Lymphocytes # (auto) 1.5 10 ^3/uL (0.4-5.4); Lymphocytes % (auto) 13.1 % (10.0-50.0); Mean Corpuscular Hemoglobin 29.3 pg (28.0-32.0); Mean Corpuscular Hgb Conc. 33.4 g/dL (32.0-36.0); Mean Corpuscular Volume 87.7 fL (80.0-100.0); Monocytes # (auto) 0.5 10 ^3/uL (0-1.3); Monocytes % (auto) 4.7 % (0.0-12.0); Neutrophils # (auto) 8.8 10 ^3/uL (1.6-8.6); Neutrophils % (auto) 79.1 % (37.0-80.0); Platelet Count (auto) 80 10^3/uL (140-450); Red Blood Cells 4.76 10^6/uL (4.5-5.90); Red Cell Distribution Width 15.6 % (11.8-14.3); White Blood Cell 11.2 10^3/uL (4.4-10.8)
[2025-01-02 10:53] LABS: Cholesterol 210 mg/dL (< 200); LDL Cholesterol 151 mg/dL (< 100); Triglycerides 163 mg/dL (< 150)
[2025-01-02 11:06] LABS: HDL Cholesterol 31 mg/dL (40-59)
== END | disposition home or self-care (01) ==
LOC: LAB 09:45
PROVIDERS: ATTEND Internal Medicine
DX: N18.30 Chronic kidney disease, stage 3 unspecified (principal); E78.5 Hyperlipidemia, unspecified; D69.6 Thrombocytopenia, unspecified
CPT/HCPCS: 36415; 80061; 82140; 84443; 85025

== ENCOUNTER → 2025-02-17 | Outpatient (CLI) | payer OTHER ==
[2025-02-18 13:08] LABS: PSA Free 0.95 ng/mL; Prostate Specific Antigen 4.3 ng/mL (0.0-4.0)
== END | disposition home or self-care (01) ==
LOC: LAB 09:32
PROVIDERS: ATTEND Urology
DX: R97.20 Elevated prostate specific antigen [PSA] (principal)
CPT/HCPCS: 84153; 84154

== ENCOUNTER 2025-04-10 10:30 | Outpatient (CLI) | payer OTHER ==
[2025-04-10 11:17] LABS: Basophils # (auto) 0 10 ^3/uL (0-0.2); Basophils % (auto) 0.2 % (0.0-2.0); Eosinophils # (auto) 0.2 10 ^3/uL (0-0.8); Hemoglobin 13.9 g/dL (13.5-17.5); Lymphocytes # (auto) 1.2 10 ^3/uL (0.4-5.4); Mean Corpuscular Hemoglobin 28.9 pg (28.0-32.0); Mean Corpuscular Hgb Conc. 33.8 g/dL (32.0-36.0); Mean Corpuscular Volume 85.4 fL (80.0-100.0); Monocytes # (auto) 0.3 10 ^3/uL (0-1.3); Monocytes % (auto) 4.5 % (0.0-12.0); Neutrophils # (auto) 5.7 10 ^3/uL (1.6-8.6); Neutrophils % (auto) 77.3 % (37.0-80.0); Nucleated Red Blood Cells % 0.1 %; Red Cell Distribution Width 15.6 % (11.8-14.3); White Blood Cell 7.4 10^3/uL (4.4-10.8)
[2025-04-10 11:33] LABS: INR 0.96 (0.9-1.15); Partial Thromboplastin Time 28.2 SEC (24.5-34.5); Prothrombin Time 10.2 sec (9.3-11.8)
[2025-04-10 11:35] LABS: Platelet Count (auto) 68 10^3/uL (140-450)
[2025-04-10 11:40] LABS: Alanine Aminotransferase 12 U/L (7-40); Albumin 4.4 g/dL (3.2-4.8); Alkaline Phosphatase 87 U/L (46-116); Anion Gap 7 (5-15); Aspartate Aminotransferase 15 U/L (<34); BUN/Creatinine Ratio 16.8 (10.0-20.0); Bilirubin, Total 0.7 mg/dL (0.2-1.0); Blood Urea Nitrogen 23 mg/dL (9-23); Carbon Dioxide 31 mmol/L (20-31); Chloride 107 mmol/L (98-107); Cholesterol 176 mg/dL (< 200); Glucose 92 mg/dL (74-106); Potassium 4.8 mmol/L (3.5-5.1); Total Protein 7.2 g/dL (5.7-8.2); Triglycerides 94 mg/dL (< 150)
[2025-04-10 11:48] LABS: HDL Cholesterol 32 mg/dL (40-59); LDL Cholesterol 140 mg/dL (< 100); Sodium 145 mmol/L (136-145)
== END 2025-04-10 17:00 | disposition home or self-care (01) ==
LOC: LAB 10:30
PROVIDERS: ATTEND Internal Medicine
DX: Z12.11 Encounter for screening for malignant neoplasm of colon (principal); N18.32 Chronic kidney disease, stage 3b; E78.5 Hyperlipidemia, unspecified; R91.1 Solitary pulmonary nodule
CPT/HCPCS: 36415; 80053; 80061; 85025; 85610; 85730

== ENCOUNTER 2025-04-18 07:30 | Inpatient (IN) | payer OTHER ==
[~2025-04-18] VITALS: Ht 182.9 cm; Wt 105.5 kg
[2025-04-18] VITALS (19 sets, daily range): BP systolic 110–147; BP diastolic 61–83; PULSE 54–72; RESP 11–18; TEMP 97.7–98.2; O2SAT 93–98
[2025-04-18] MEDS: MIDAZOLAM HCL 2MG/2ML 2ml VIAL (1mg/ml) IV ONE (08:00)
--- NOTE | 2025-04-18 09:51 | DVH ---
XY CHEST PORTABLE, HISTORY: 2 HOURS POST LUNG BX COMPARISON: CHEST PORTABLE on DOS: 02/12/21, CHEST PORTABLE on DOS: 02/11/21 CHEST PORTABLE on DOS: 02/12/21, CHEST PORTABLE on DOS: 02/11/21 TECHNICAL DATA: 1 view of the chest was obtained. FINDINGS: Lines and tubes: Right apical pigtail chest tube. Cardiomediastinal silhouette: normal Pulmonary vasculature: normal Lung expansion: normal Lung airspace: Bibasilar atelectasis. Lung interstitium: normal Pleura: normal Pneumothorax: Trace right pneumothorax. Bones: Unremarkable Other: no IMPRESSION: Trace right pneumothorax 5%. Please obtain daily follow up chest x ray. Right apical pigtail chest tube.
--- NOTE | 2025-04-18 09:55 | DVH ---
CT CHEST WITHOUT CONTRAST, HISTORY: Lung nodule PROCEDURE: Informed consent was obtained. The patient was placed prone on the CT scanner. A limited l ocalization CT scan of the lung was obtained. The skin overlying the lesion was prepped with chlorhex idine which was allowed to dry and draped in sterile fashion. Time out was performed. The skin and so ft tissues were infiltrated with Xylocaine, . With intermittent CT guidance, a 19 gauge Temno outer c oaxial guiding needle was advanced into the right lung nodule. The needle position was confirmed with CT scan. 2 core biopsies were obtained using Temno inner 20 gauge biopsy needle. The specimens were sent in formalin to pathology for analysis. A visceral blood patch was applied as the needle was wit hdrawn the needle was withdrawn, and post procedural CT obtained through the biopsy region. A large p neumothorax was noted, and a chest tube was placed and connected to a PleuroVac. DLP = 3501 mGy-cm. FINDINGS: Limited CT scan demonstrates an approximately small soft tissue nodule and the biopsy need le within the margin of the lung mass. Post procedure pneumothorax decompressed with chest tube place ment. IMPRESSION/PLAN: CT guided lung biopsy of a right lung nodule adjacent to the major fissure. Pathology pending. Iatrog enic pneumothorax decompressed with chest tube placement to wall suction; will follow up CXRs. Admit to hospitalist for observation and chest tube management.
[2025-04-18] MEDS ORDERED: DOCUSATE SOD 100 MG CAP PO PRN (10:45)
[2025-04-18] MEDS ORDERED: ACETAMINOPHEN 325 MG TAB PO PRN (10:45)
[2025-04-18] MEDS ORDERED: ONDANSETRON HCL 4 MG/2 ML VIAL IV PRN (10:45)
[2025-04-18] MEDS: fentaNYL CITRATE 100 MCG/2 ML VL ONE (10:46)
[2025-04-18] MEDS: fentaNYL CITRATE 100 MCG/2 ML VL IV ONE ×2 (10:46→13:50)
--- NOTE | 2025-04-18 10:51 | DVHHP2 ---
History of Present Illness Reason for Visit: Lung biopsy History of Present Illness Shan Ramirez is a 69-year old male with past medical history of COPD, on home oxygen, hypertension, and BPH who came in to the hospital today for a scheduled lung biopsy. After the biopsy the patient had a pneumothorax and a chest tube needed to be placed. The patient will be admitted for chest tube management and pneumothorax management. Cardiovascular: HTN Pulmonary: COPD (on 2L/NC home oxygen) Renal/: Benign prostatic enlarg. Past Surgical History: Other (right arm, & lipoma removal on back) Smoke: No ALCOHOL: none Lives: with Family Domestic Violence: Neg Review of Systems Constitutional: No: Fever, Chills, Sweats, Weakness, Malaise, Other Eyes: No: Pain, Vision change, Conjunctivae inflammation, Eyelid inflammation, Other, Redness ENT: No: Ear pain, Ear discharge, Nose pain, Nose discharge, Nose congestion, Mouth pain, Mouth swelling, Throat pain, Throat swelling, Other Respiratory: Shortness of breath; No: Cough, Dry, SOB with excertion, Wheezing, Hemoptysis, Pleuritic Pain, Sputum, Wheezing, Other Cardiovascular: No: Chest Pain, Palpitations, Orthopnea, Paroxysmal Noc. Dy spnea, Edema, Lt Headedness, Other Gastrointestinal: No: Nausea, Vomiting, Abdominal Pain, Diarrhea, Constipation, Melena, Hematochezia, Other Genitourinary: No Dysuria, No Frequency, No Incontinence, No Hematuria, No Retention, No Other Musculoskeletal: No: other, neck pain, shoulder pain, arm pain, back pain, hand pain, leg pain, foot pain Skin: No: Rash, Lesions, Jaundice, Bruising, Other Neurological: No: Weakness, Numbness, Incoordination, Change in speech, Confusion, Seizures, Other Allergies: Coded Allergies: NO KNOWN ALLERGIES (Unverified , 08/28/20) Medications Current Medications Medications Dose Ordered Sig/Fani Route Start Time Stop Time Status Last Admin Dose Admin Sodium Chloride 10 ml Q8HR IV 04/18/25 14:00 UNV Acetaminophen/ Hydrocodone Bitart 1 tab Q4HP PRN PO 04/18/25 10:45 UNV Ondansetron HCl 4 mg Q4HP PRN IV 04/18/25 10:45 UNV Docusate Sodium 100 mg BIDPRN PRN PO 04/18/25 10:45 UNV Acetaminophen 650 mg Q6HP PRN PO 04/18/25 10:45 UNV Morphine Sulfate 2 mg Q4HPRN PRN IV 04/18/25 10:45 UNV Exam Vital Signs Vital Signs Date Time Temp Pulse Resp B/P (MAP) Pulse Ox O2 Delivery O2 Flow Rate FiO2 04/18/25 10:23 56 12 139/76 (97) 95 04/18/25 09:45 98.2 98.2 General Appearance: Alert, Oriented X3 HEENT: Atraumatic, PERRLA Respiratory: Clear to auscultation, Other (right lung apical chest tube) Cardiovascular: Regular rate, Normal S1, Normal S2 Abdominal: Normal bowel sounds, Soft, No tenderness, No hepatospenomegaly Extremities: No clubbing, No cyanosis, No edema, Normal pulses, No tenderness/swelling Skin: No rashes, No breakdown, No significant lesion Neuro: Normal gait, Normal speech, Strength at 5/5 X4 ext Psych/Mental Status: Mental status NL, Mood NL Labs/Xrays Labs ordered and pending CT CHEST WITHOUT CONTRAST, HISTORY: Lung nodule PROCEDURE: Informed consent was obtained. The patient was placed prone on the CT scanner. A limited localization CT scan of the lung was obtained. The skin overlying the lesion was prepped with chlorhexidine which was allowed to dry and draped in sterile fashion. Time out was performed. The skin and soft tissues were infiltrated with Xylocaine, . With intermittent CT guidance, a 19 gauge Temno outer coaxial guiding needle was advanced into the right lung nodule. The needle position was confirmed with CT scan. 2 core biopsies were obtained using Temno inner 20 gauge biopsy needle. The specimens were sent in formalin to pathology for analysis. A visceral blood patch was applied as the needle was withdrawn the needle was withdrawn, and post procedural CT obtained through the biopsy region. A large pneumothorax was noted, and a chest tube was placed and connected to a PleuroVac. DLP = 3501 mGy-cm. FINDINGS: Limited CT scan demonstrates an approximately small soft tissue nodule and the biopsy needle within the margin of the lung mass. Post procedure pneu mothorax decompressed with chest tube placement. IMPRESSION/PLAN: CT guided lung biopsy of a right lung nodule adjacent to the major fissure. Pathology pending. Iatrogenic pneumothorax decompressed with chest tube placement to wall suction; will follow up CXRs. Admit to hospitalist for observation and chest tube management. XY CHEST PORTABLE, FINDINGS: Lines and tubes: Right apical pigtail chest tube. Cardiomediastinal silhouette: normal Pulmonary vasculature: normal Lung expansion: normal Lung airspace: Bibasilar atelectasis. Lung interstitium: normal Pleura: normal Pneumothorax: Trace right pneumothorax. Bones: Unremarkable Other: no IMPRESSION: Trace right pneumothorax 5%. Please obtain daily follow up chest x ray. Right apical pigtail chest tube. Assessment/Plan Assessment/Plan Assessment: Pneumothorax after biopsy, COPD, Hypertension, Plan: Admit to Med-Surg, Chest tube to suction, Out of bed to chair for every meal, IS 10x/hour while awake, Pain management, Chest X-ray in am, Breathing treatments as needed, Home medications reconciled, Plan discussed with: Patient My Orders Orders - NIRMALA CHRIS FUNCTIONAL MENTAL DISABILITY TEACHER Procedure Category Date Status Time Admit ADMIT 04/18/25 Transmitted 10:37 Code Status CODE 04/18/25 Transmitted 10:37 2 Gm Sodium Diet DIET 04/18/25 Transmitted Lunch Sodium Chloride Lock PHA 04/18/25 Logged (Saline Lock Ns) 14:00 Hydrocodone-Acet PHA 04/18/25 Logged 5/325mg Tab ([place] 10:45 Ondansetron Hcl PHA 04/18/25 Logged (Zofran) 10:45 Docusate Sodium PHA 04/18/25 Logged Capsule (Colace 10:45 Comprehensive LAB 04/19/25 Verified Metabolic Panel 04:00 Condition: Serious CATIE 04/18/25 In Process 10:37 Acetaminophen Tablet PHA 04/18/25 Logged (Tylenol Tablet) 10:45 Morphine Sulfate PHA 04/18/25 Logged Injection 10:45 Incentive Spirometry ORDERS 04/18/25 Transmitted Q 1hr 10:40 Albuterol Medneb PHA 04/18/25 Transmitted (Ventolin Medneb) 10:45 Ipratropium Medneb PHA 04/18/25 Transmitted (Atrovent Medneb) 10:45 Up In Chair Qid [facility] 04/18/25 Transmitted 10:40 Allopurinol Tablet PHA 04/19/25 Transmitted (Zyloprim Tablet) 07:00 Carvedilol Tablet PHA 04/18/25 Transmitted (Coreg Tablet) 22:00 Finasteride Tablet PHA 04/19/25 Transmitted (Proscar Tablet) 10:00 Furosemide Tablet PHA 04/19/25 Transmitted (Lasix Tablet) 10:00 Losartan Tablet PHA 04/19/25 Transmitted (Cozaar Tablet) 10:00 Montelukast Tablet PHA 04/19/25 Transmitted (Singulair Tablet) 10:00 (Nf) Colchicine PHA 04/18/25 Transmitted 22:00 (Nf) Cyanocobalamin PHA 04/19/25 Transmitted (Vitamin B12) 10:00 (Nf) Escitalopram PHA 04/19/25 Verified Oxalate 10:00 (NF) PHA 04/19/25 Verified Byhztuwctwc-Mpjxitgyetkv-Pmpmi 10:00 (Nf) Nifedipine PHA 04/19/25 Verified (Nifedipine Er) 10:00 Date of Service: Apr 18, 2025 Billing Provider: NIRMALA CHRIS Common Visit Codes: [id number] INP/OBS CARE (HIGH) NIRMALA CHRIS Apr 18, 2025 10:51
[2025-04-18 11:33] LABS: Hemoglobin 14.0 g/dL (13.5-17.5); Nucleated Red Blood Cells % 0.1 %
[2025-04-18 11:35] LABS: Hematocrit 40.9 % (41.0-53.0); Mean Corpuscular Hemoglobin 29.3 pg (28.0-32.0); Mean Corpuscular Volume 86.0 fL (80.0-100.0)
[2025-04-18 11:52] LABS: Alanine Aminotransferase 13 U/L (7-40); Albumin 4.4 g/dL (3.2-4.8); Alkaline Phosphatase 85 U/L (46-116); Anion Gap 7 (5-15); BUN/Creatinine Ratio 14.3 (10.0-20.0); Bilirubin, Total 0.7 mg/dL (0.2-1.0); Blood Urea Nitrogen 17 mg/dL (9-23); Calcium 9.8 mg/dL (8.7-10.4); Carbon Dioxide 29 mmol/L (20-31); Chloride 106 mmol/L (98-107); Glucose 96 mg/dL (74-106); Potassium 4.5 mmol/L (3.5-5.1); Sodium 142 mmol/L (136-145); Total Protein 7.0 g/dL (5.7-8.2)
--- NOTE | 2025-04-18 12:08 | DVH ---
EXAM: XY CHEST PORTABLE HISTORY: IMMEDIATE POST LUNG BX COMPARISON: XY CHEST PORTABLE on DOS: 04/18/25, CHEST PORTABLE on DOS: 02/12/21, CHEST PORTABLE on DOS: 02/11/21 TECHNIQUE: Portable upright AP view of the chest was performed. FINDINGS: Small bore right thoracostomy tube is re-identified with stable right apical pneumothorax measuring 3 .5 cm longitudinal. There is atelectasis and/or scarring in the right mid lung and bilateral lung bas es. No left pneumothorax. The heart is not enlarged. IMPRESSION: Stable right pneumothorax with small bore thoracostomy tube in place.
[2025-04-18] MEDS: SODIUM CHLOR 0.9% PF (SALINE LOCK) 10ML VIAL/SYR IV SCH (14:00)
[2025-04-18] MEDS: ALBUTEROL SULF 2.5 MG/0.5ML(0.5%) NEB SOLN NEB PRN (19:21)
[2025-04-18] MEDS: IPRATROPIUM BROM 0.5 MG/2.5ML INH SOL NEB PRN (19:21)
[2025-04-18] MEDS: MORPHINE SULFATE INJ 2 MG/ml SYRG IV PRN (20:20)
[2025-04-18] MEDS: CARVEDILOL 3.125 MG TAB PO SCH (22:00)
[2025-04-18] MEDS: COLCHICINE 0.6 MG CAP PO SCH (22:37)
[2025-04-19] VITALS (15 sets, daily range): BP systolic 134–158; BP diastolic 81–97; PULSE 53–72; RESP 17–20; TEMP 97.6–98.5; O2SAT 93–99
[2025-04-19] MEDS: HYDROcodone-ACET 5/325MG TAB PO PRN (01:21)
[2025-04-19] MEDS: ALLOPURINOL 100 MG TAB PO SCH (05:34)
--- NOTE | 2025-04-19 06:37 | DVH ---
CHEST RADIOGRAPH Indication: Pneumothorax after biopsy Technique: Single frontal view of the chest was obtained Comparison: XY CHEST PORTABLE on DOS: 04/18/25 FINDINGS: Lines and Tubes: Right pigtail catheter unchanged. Lungs: Right basilar opacity. Pleura: No effusion. No persistent pneumothorax. Cardiomediastinal contours: Stable. Bones: No acute osseous abnormality. Decreased right chest wall subcutaneous emphysema. IMPRESSION: 1. Right pigtail catheter unchanged in position. No discernible pneumothorax. 2. Right basilar opacities similar to prior study.
[2025-04-19 07:08] LABS: Hemoglobin 13.7 g/dL (13.5-17.5)
[2025-04-19 07:11] LABS: Hematocrit 41.1 % (41.0-53.0); Mean Corpuscular Hemoglobin 28.7 pg (28.0-32.0); Mean Corpuscular Volume 85.9 fL (80.0-100.0); Nucleated Red Blood Cells % 0.1 %
[2025-04-19 07:21] LABS: Alanine Aminotransferase 13 U/L (7-40); Alkaline Phosphatase 88 U/L (46-116); Calcium 8.7 mg/dL (8.7-10.4); Carbon Dioxide 28 mmol/L (20-31); Chloride 104 mmol/L (98-107)
[2025-04-19 07:22] LABS: Albumin 4.1 g/dL (3.2-4.8); Anion Gap 8 (5-15); BUN/Creatinine Ratio 13.9 (10.0-20.0); Bilirubin, Total 0.9 mg/dL (0.2-1.0); Blood Urea Nitrogen 17 mg/dL (9-23); Glucose 134 mg/dL (74-106); Potassium 3.7 mmol/L (3.5-5.1); Sodium 140 mmol/L (136-145); Total Protein 6.6 g/dL (5.7-8.2)
[2025-04-19] MEDS: CITALOPRAM HYDROBR 20 MG TAB PO SCH (09:39)
[2025-04-19] MEDS: LOSARTAN POTASSIUM 50 MG TAB PO SCH (09:42)
[2025-04-19] MEDS: FUROSEMIDE 20 MG TAB PO SCH (09:43)
[2025-04-19] MEDS: FINASTERIDE 5 MG TAB PO SCH (09:43)
[2025-04-19] MEDS: MONTELUKAST SODIUM 10 MG TAB PO SCH (09:49)
[2025-04-19] MEDS: FLUTICASONE UMECLIDINIUM VILANTEROL IN SCH (10:00)
[2025-04-19] MEDS: CYANOCOBALAMIN 100 MCG PO SCH (10:00)
--- NOTE | 2025-04-19 11:18 | DVH ---
XY CHEST PORTABLE, HISTORY: EVALUATE PNEUMOTHORAX COMPARISON: XY CHEST PORTABLE on DOS: 04/19/25, XY CHEST PORTABLE on DOS: 04/18/25, XY CHEST PORTABLE on DOS: 04/18/25 XY CHEST PORTABLE on DOS: 04/19/25, XY CHEST PORTABLE on DOS: 04/18/25, XY CHEST PORTABLE on DOS: 04/18/25 TECHNICAL DATA: 1 view of the chest was obtained. FINDINGS: Lines and tubes: Stable right pigtail chest tube Cardiomediastinal silhouette: normal Pulmonary vasculature: normal Lung expansion: normal Lung airspace: Patchy bibasilar airspace opacities. Lung interstitium: normal Pleura: normal Pneumothorax: no Bones: Unremarkable Other: no IMPRESSION: Stable right pigtail chest tube, no obvious pneumothorax seen.
--- NOTE | 2025-04-19 14:01 | DVH ---
XY CHEST PORTABLE, HISTORY: evalutaion of pneumothorax COMPARISON: XY CHEST PORTABLE on DOS: 04/19/25, XY CHEST PORTABLE on DOS: 04/19/25, XY CHEST PORTABLE on DOS: 04/18/25 XY CHEST PORTABLE on DOS: 04/19/25, XY CHEST PORTABLE on DOS: 04/19/25, XY CHEST PORTABLE on DOS: 04/18/25 TECHNICAL DATA: 1 view of the chest was obtained. FINDINGS: Lines and tubes: Stable right sided pigtail chest tube. Cardiomediastinal silhouette: normal Pulmonary vasculature: normal Lung expansion: normal Lung airspace: Similar bibasilar patchy airspace opacities. Lung interstitium: normal Pleura: normal Pneumothorax: no Bones: Unremarkable Other: no IMPRESSION: No pneumothorax seen.
--- NOTE | 2025-04-19 17:57 | DVHPN2 ---
Subjective Seen and examined at bedside, CXR reviewed. After chest tube was sealed. Changes from previous H/P or p: No Changes Eyes: No Pain, No Vision change, No Conjunctivae inflammation, No Eyelid inflammation, No Other, No Redness ENT: No Ear pain, No Ear discharge, No Nose pain, No Nose discharge, No Nose congestion, No Mouth pain, No Mouth swelling, No Throat pain, No Throat swelling, No Other Cardiovascular: No Chest Pain, No Palpitations, No Orthopnea, No Paroxysmal Noc. Dyspnea, No Edema, No Lt Headedness, No Other Respiratory: No Cough, No Dry, No SOB with excertion, No Wheezing, No Hemoptysis, No Pleuritic Pain, No Sputum, No Other Gastrointestinal: No Nausea, No Vomiting, No Abdominal Pain, No Diarrhea, No Constipation, No Melena, No Hematochezia, No Other Genitourinary: No Dysuria, No Frequency, No Incontinence, No Hematuria, No Retention, No Other Musculoskeletal: No other, No neck pain, No shoulder pain, No arm pain, No back pain, No hand pain, No leg pain, No foot pain Skin: No Rash, No Lesions, No Jaundice, No Bruising, No Other Objective Vitals Vital Signs Date Time Temp Pulse Resp B/P (MAP) Pulse Ox O2 Delivery O2 Flow Rate FiO2 04/19/25 16:48 98.5 63 18 134/81 (98) 95 98.5 04/19/25 06:43 Nasal Cannula* 3 32 Intake/Output Intake and Output 04/19/25 07:00 Intake Total 550 ml Output Total 600 ml Balance -50 ml Intake Oral 550 ml Output Urine Total 600 ml General Appearance: Alert, Oriented X3, Cooperative, No acute distress Lungs: Other (Chest Tube) Cardiovascular: Regular rate, Normal S1, Normal S2 Psych/Mental Status: Mental status NL Medications Current Medications Medications Dose Ordered Sig/Fani Route Start Time Stop Time Status Last Admin Dose Admin Sodium Chloride 10 ml Q8HR IV 04/18/25 14:00 04/19/25 05:37 10 ML Acetaminophen/ Hydrocodone Bitart 1 tab Q4HP PRN PO 04/18/25 10:45 04/19/25 01:21 1 TAB Ondansetron HCl 4 mg Q4HP PRN IV 04/18/25 10:45 Docusate Sodium 100 mg BIDPRN PRN PO 04/18/25 10:45 Acetaminophen 650 mg Q6HP PRN PO 04/18/25 10:45 Morphine Sulfate 2 mg Q4HPRN PRN IV 04/18/25 10:45 04/18/25 20:20 2 MG Albuterol 2.5 mg Q4HPRN PRN NEB 04/18/25 10:45 04/19/25 14:31 2.5 MG Ipratropium Spencer 0.5 mg Q4HPRN PRN NEB 04/18/25 10:45 04/19/25 14:31 0.5 MG Allopurinol 100 mg QAM PO 04/19/25 07:00 04/19/25 05:34 100 MG Carvedilol 3.125 mg BID PO 04/18/25 22:00 04/19/25 09:49 3.125 MG Finasteride 5 mg DAILY PO 04/19/25 10:00 04/19/25 09:43 5 MG Furosemide 20 mg DAILY PO 04/19/25 10:00 04/19/25 09:43 20 MG Losartan Potassium 50 mg DAILY PO 04/19/25 10:00 04/19/25 09:42 50 MG Montelukast Sodium 10 mg DAILY PO 04/19/25 10:00 04/19/25 09:49 10 MG Colchicine 0.6 mg BID PO 04/18/25 22:00 04/19/25 09:39 0.6 MG Patient Own Medication 100 mcg DAILY PO 04/19/25 10:00 Citalopram Hydrobromide 20 mg DAILY PO 04/19/25 10:00 04/19/25 09:39 20 MG Patient Own Medication 1 aer DAILY IN 04/19/25 10:00 Nifedipine 30 mg DAILY PO 04/19/25 10:00 04/19/25 09:42 30 MG Laboratory Results Laboratory Tests 04/19/25 06:50 Chemistry Test 04/19/25 06:50 Albumin 4.1 g/dL (3.2-4.8) Calcium Level 8.7 mg/dL (8.7-10.4) Total Protein 6.6 g/dL (5.7-8.2) LFT Test 04/19/25 06:50 Alanine Aminotransferase (ALT) 13 U/L (7-40) Alkaline Phosphatase 88 U/L (46-116) Aspartate Amino Transferase (AST) 16 U/L (13-40) Total Bilirubin 0.9 mg/dL (0.2-1.0) Assessment/Plan Assessment/Plan Pneumothorax after biopsy- CXR reviewed, possible DC tomorrow COPD on Home oxygen- Stable, Pulm Cx Dr. Quinones Hypertension- Monitor and adjust meds as needed Plan discussed with: Patient Date of Service: Apr 19, 2025 Billing Provider: NOLVIA CHAMBERLAIN MD Common Visit Codes: [id number] INP/OBS CARE(HIGH) NOLVIA CHAMBERLAIN MD Apr 19, 2025 17:57
--- NOTE | 2025-04-19 21:16 | DVHINCON2 ---
Date of service: Apr 19, 2025 Referring Physician GANESH Dan Reason for Consultation Pneumothorax, chronic hypoxic respiratory failure and COPD. History of Present Illness A 69-year old man with past medical history of COPD, on home oxygen, hypertension, and BPH who presented to the hospital on 04/18/25 for a scheduled lung biopsy. After the biopsy, patient had a pneumothorax and a chest tube needed to be placed. The patient was subsequently admitted for chest tube management and management of pneumothorax; and pulmonary consultation is requested for evaluation and management given the above findings in patient with chronic hypoxic respiratory failure. Review of Systems: 14-point review of systems negative unless otherwise noted above. Past Medical History: Hypertension, COPD (on 2L/NC home oxygen), benign prostatic enlargement. Past Surgical History: Other (right arm, & lipoma removal on back) Medications: Reviewed. Allergies: No known drug allergies. Family History: DM, HTN, heart disease. Social History: Nonsmoker. No alcohol or illicit drug use. Family History: Cardiovascular disease G8 FATHER Diabetes mellitus G8 FATHER Hypertension G8 FATHER Allergies: Coded Allergies: NO KNOWN ALLERGIES (Unverified , 08/28/20) Home Meds Reported Medications Colchicine (Colchicine) 0.6 Mg Cap, 0.6 MG PO BID, CAP 09/23/24 Montelukast Sodium (MONTELUKAST SODIUM) 10 Mg Tab, 10 MG OR DAILY, TAB 09/23/24 Nifedipine (Nifedipine Er) 60 Mg Tab, 60 MG PO DAILY, TAB 09/23/24 Jwjbbftcldo-Deremgvqowja-Vtwvo (Trelegy Ellipta 200-62.5-25 Mcg/INH) 1 Aer Aer, 1 AER IN DAILY, AER 09/23/24 Ipratropium Dorsey (Ipratropium Dorsey) 0.02 % Emma, 0.5 % HHN PRN, ML 09/23/24 Furosemide (Furosemide) 20 Mg Tab, 20 MG PO DAILY 08/03/24 Carvedilol (Carvedilol) 3.125 Mg Tab, 3.125 MG PO BID 08/03/24 Losartan Potassium (Losartan Potassium) 50 Mg Tab, 50 MG PO DAILY 08/03/24 Escitalopram Oxalate (ESCITALOPRAM OXALATE) 10 Mg Tab, 10 MG PO DAILY 08/03/24 Cyanocobalamin (Vitamin B12) 100 Mcg Tab, 100 MCG PO DAILY, TAB 08/28/20 Finasteride (Finasteride) 5 Mg Tab, 5 MG PO DAILY, MG 08/28/20 Allopurinol (Allopurinol) 100 Mg Tab, 1 TAB PO QAM, MG GOUT PREVENTION 08/28/20 Albuterol Sulfate (VENTOLIN MDI) 90 Mcg Ih, 2 PUFF IN Q6HP, INH 08/28/20 Current Medications Current Medications Medications (Trade) Dose Ordered Sig/Fani Route PRN Reason Start Time Stop Time Status Last Admin Allopurinol (Zyloprim Tablet) 100 mg QAM PO 04/19/25 07:00 04/19/25 05:34 Carvedilol (Coreg Tablet) 3.125 mg BID PO 04/18/25 22:00 04/19/25 09:49 Finasteride (Proscar Tablet) 5 mg DAILY PO 04/19/25 10:00 04/19/25 09:43 Furosemide (Lasix Tablet) 20 mg DAILY PO 04/19/25 10:00 04/19/25 09:43 Losartan Potassium (Cozaar Tablet) 50 mg DAILY PO 04/19/25 10:00 04/19/25 09:42 Montelukast Sodium (Singulair Tablet) 10 mg DAILY PO 04/19/25 10:00 04/19/25 09:49 Colchicine (Colcrys) 0.6 mg BID PO 04/18/25 22:00 04/19/25 09:39 Patient Own Medication 100 mcg DAILY PO 04/19/25 10:00 Citalopram Hydrobromide (CeleXA TABLET) 20 mg DAILY PO 04/19/25 10:00 04/19/25 09:39 Patient Own Medication 1 aer DAILY IN 04/19/25 10:00 Nifedipine (Procardia Xl (Time-Release)) 30 mg DAILY PO 04/19/25 10:00 04/19/25 09:42 Hydralazine HCl (Apresoline Tablet) 25 mg Q6HPRN PO 04/20/25 00:00 UNV Hydralazine HCl (Apresoline Tablet) 25 mg Q6HP PRN PO SBP>160 04/19/25 21:00 Vital Signs Vital Signs Date Time Temp Pulse Resp B/P (MAP) Pulse Ox O2 Delivery O2 Flow Rate FiO2 04/19/25 20:27 62 18 99 04/19/25 20:18 Nasal Cannula 2.0 04/19/25 20:18 28 04/19/25 16:48 98.5 134/81 (98) 98.5 Physical Exam Gen.: Patient lying in bed in no apparent distress. On supplemental oxygen. Head: Normocephalic, atraumatic. Eyes: EOMI/PERRLA. Ears: Normal hearing. Normal anatomy. Neck/trachea: Trachea midline, supple. Nose: Normal external anatomy. Mouth: Moist mucous membranes. Chest: Decreased air entry bilaterally. No wheezing or rhonchi. Cardiovascular: Positive S1, positive S2. Regular rate and rhythm. Abdomen: Positive bowel sounds in all 4 quadrants. Soft, non-tender, non- distended. : Deferred. Rectal: Deferred. Skin: Warm, dry. Intact. Extremities: 2+ radial pulses bilaterally. No lower extremity edema. Neuro: Awake, alert, oriented x3. No gross motor or sensory deficits. Cranial nerves II through XII intact. Gait not assessed. Labs/Diagnostic Data Labs Test 04/19/25 06:50 Range/Units White Blood Count 8.0 4.4-10.8 10^3/uL Red Blood Count 4.78 4.5-5.90 10^6/uL Hemoglobin 13.7 13.5-17.5 g/dL Hematocrit 41.1 41.0-53.0 % Mean Corpuscular Volume 85.9 80.0-100.0 fL Mean Corpuscular Hemoglobin 28.7 28.0-32.0 pg Mean Corpuscular Hemoglobin Concent 33.4 32.0-36.0 g/dL Red Cell Distribution Width 15.7 H 11.8-14.3 % Platelet Count 61 L 140-450 10^3/uL Mean Platelet Volume 7.5 6.9-10.8 fL Neutrophils (%) (Auto) 76.2 37.0-80.0 % Lymphocytes (%) (Auto) 17.2 10.0-50.0 % Monocytes (%) (Auto) 4.5 0.0-12.0 % Eosinophils (%) (Auto) 1.6 0.0-7.0 % Basophils (%) (Auto) 0.5 0.0-2.0 % Neutrophils # (Auto) 6.1 1.6-8.6 10 ^3/uL Lymphocytes # (Auto) 1.4 0.4-5.4 10 ^3/uL Monocytes # (Auto) 0.4 0-1.3 10 ^3/uL Eosinophils # (Auto) 0.1 0-0.8 10 ^3/uL Basophils # (Auto) 0 0-0.2 10 ^3/uL Nucleated Red Blood Cells 0.1 % Sodium Level 140 136-145 mmol/L Potassium Level 3.7 3.5-5.1 mmol/L Chloride Level 104 98-107 mmol/L Carbon Dioxide Level 28 20-31 mmol/L Anion Gap 8 5-15 Blood Urea Nitrogen 17 9-23 mg/dL Creatinine 1.22 0.700-1.30 mg/dL Glomerular Filtration Rate Calc 63 >90 mL/min BUN/Creatinine Ratio 13.9 10.0-20.0 Serum Glucose 134 H 74-106 mg/dL Calcium Level 8.7 8.7-10.4 mg/dL Total Bilirubin 0.9 0.2-1.0 mg/dL Aspartate Amino Transferase (AST) 16 13-40 U/L Alanine Aminotransferase (ALT) 13 7-40 U/L Alkaline Phosphatase 88 46-116 U/L Total Protein 6.6 5.7-8.2 g/dL Albumin 4.1 3.2-4.8 g/dL Assessment Impression: Pneumothorax s/p biopsy, right Chronic obstructive pulmonary disease Chronic hypoxic respiratory failure Dependence on supplemental oxygen Obesity, BMI 30.3 Plan: Supplemental oxygen 2 LPM NC Titrate to keep O2 sats above 92%. Taper O2 as tolerated. Chest x-ray reviewed; no pneumothorax. Bibasilar patchy airspace opacities. Right chest tube in place. Continue bronchodilators PRN On Trelegy and Singulair Chest tube was clamped. Obtain CXR in AM to assess for interval changes If no pneumothorax, request IR to remove chest tube. Monitor renal function. Monitor electrolytes. Supplement as necessary. Monitor ins and outs. Diet and lifestyle modifications for weight reduction Obesity complicates all care DVT prophylaxis. Prognosis: Poor given patient's multiple co-morbidities. Rest of plan per hospitalist and other consultants. A total of 76 minutes of clinical care time was spent reviewing the patient record, examining the patient, making a diagnostic and therapeutic plan, discussing this plan with the medical personnel, following up on diagnostic studies and following the patient for clinical stability excluding any and all procedures. At least 50% of this time was spent in direct, [id number] contact. Thank you, GANESH Dan, for allowing me to participate in this patient's care. Further recommendations will depend on the patient's clinical course. Please do not hesitate to contact me if you have any questions or concerns. This medical document was created using an electronic medical record system with [employer] dictation system. Although these documentations are being carefully reviewed, there may still be some phonetic and typographical changes. The errors are purely typographical, due to imperfection on the software program, and do not reflect any compromise in the patient's medical care. Plan discussed with: Patient, Other (RN/GANESH Dan/) MARNIE LAND MD Apr 19, 2025 21:16
[2025-04-20] VITALS (9 sets, daily range): BP systolic 125–138; BP diastolic 75–87; PULSE 55–67; RESP 17–18; TEMP 97.9–98.1; O2SAT 90–100
--- NOTE | 2025-04-20 08:25 | DVH ---
EXAM: XY CHEST TWO VIEWS ROUTINE CLINICAL HISTORY: pain; Pneumothorax COMPARISON: None TECHNIQUE: Frontal and lateral view of the chest was obtained FINDINGS: Lines and Tubes: Right pigtail catheter is visualized Lungs: No focal consolidation. Linear atelectasis. Pleura: No effusion. No pneumothorax. Cardiomediastinal contours: Unremarkable Bones: No acute osseous abnormality. IMPRESSION: No large pneumothorax visualized.
--- NOTE | 2025-04-20 09:25 | DVHDS2 ---
Discharge Summary Date of Admission Apr 18, 2025 at 10:37 Date of Discharge: Apr 20, 2025 Admitting Diagnosis Pneumothorax Labs/Diagnostic Data: Laboratory Results Test 04/19/25 06:50 White Blood Count 8.0 10^3/uL (4.4-10.8) Red Blood Count 4.78 10^6/uL (4.5-5.90) Hemoglobin 13.7 g/dL (13.5-17.5) Hematocrit 41.1 % (41.0-53.0) Mean Corpuscular Volume 85.9 fL (80.0-100.0) Mean Corpuscular Hemoglobin 28.7 pg (28.0-32.0) Mean Corpuscular Hemoglobin Concent 33.4 g/dL (32.0-36.0) Red Cell Distribution Width 15.7 % (11.8-14.3) Platelet Count 61 10^3/uL (140-450) Mean Platelet Volume 7.5 fL (6.9-10.8) Neutrophils (%) (Auto) 76.2 % (37.0-80.0) Lymphocytes (%) (Auto) 17.2 % (10.0-50.0) Monocytes (%) (Auto) 4.5 % (0.0-12.0) Eosinophils (%) (Auto) 1.6 % (0.0-7.0) Basophils (%) (Auto) 0.5 % (0.0-2.0) Neutrophils # (Auto) 6.1 10 ^3/uL (1.6-8.6) Lymphocytes # (Auto) 1.4 10 ^3/uL (0.4-5.4) Monocytes # (Auto) 0.4 10 ^3/uL (0-1.3) Eosinophils # (Auto) 0.1 10 ^3/uL (0-0.8) Basophils # (Auto) 0 10 ^3/uL (0-0.2) Nucleated Red Blood Cells 0.1 % Sodium Level 140 mmol/L (136-145) Potassium Level 3.7 mmol/L (3.5-5.1) Chloride Level 104 mmol/L (98-107) Carbon Dioxide Level 28 mmol/L (20-31) Anion Gap 8 (5-15) Blood Urea Nitrogen 17 mg/dL (9-23) Creatinine 1.22 mg/dL (0.700-1.30) Glomerular Filtration Rate Calc 63 mL/min (>90) BUN/Creatinine Ratio 13.9 (10.0-20.0) Serum Glucose 134 mg/dL (74-106) Calcium Level 8.7 mg/dL (8.7-10.4) Total Bilirubin 0.9 mg/dL (0.2-1.0) Aspartate Amino Transferase (AST) 16 U/L (13-40) Alanine Aminotransferase (ALT) 13 U/L (7-40) Alkaline Phosphatase 88 U/L (46-116) Total Protein 6.6 g/dL (5.7-8.2) Albumin 4.1 g/dL (3.2-4.8) Other Laboratory Tests 04/19/25 06:50 Brief Hx & Hospital Course: A 69-year old man with past medical history of COPD, on home oxygen, hypertension, and BPH who presented to the hospital on 04/18/25 for a scheduled lung biopsy. After the biopsy, patient had a pneumothorax and a chest tube needed to be placed. The patient was subsequently admitted for chest tube management and management of pneumothorax; and pulmonary consultation was requested for evaluation and management given the above findings in patient with chronic hypoxic respiratory failure. Chest tube was removed, CXR reviewed. Patient will be discharged home to followup with Dr. Mendez and Dr. Quinones in Pulm Clinic. Condition at Discharge: Poor Final Diagnosis/Problems List Pneumothorax Discharge Disposition: Home Discharge Instruct/Medications Diet: Cardiac 2g Na,low cholest Activity: Light activity Follow Up/Referral: Dr. Mendez and Dr. Quinones Scheduled Albuterol Sulfate (Ventolin Mdi), 2 PUFF IN Q6HP, (Reported) Allopurinol (Allopurinol), 1 TAB PO QAM, (Reported) Carvedilol (Carvedilol), 3.125 MG PO BID, (Reported) Colchicine (Colchicine), 0.6 MG PO BID, (Reported) Cyanocobalamin (Vitamin B12), 100 MCG PO DAILY, (Reported) Escitalopram Oxalate (Escitalopram Oxalate), 10 MG PO DAILY, (Reported) Finasteride (Finasteride), 5 MG PO DAILY, (Reported) Zijohvlvutw-Wopqetdckbve-Jcsmt (Trelegy Ellipta 200-62.5-25 Mcg/INH), 1 AER IN DAILY, (Reported) Furosemide (Furosemide), 20 MG PO DAILY, (Reported) Ipratropium [place] (Ipratropium [place]), 0.5 % HHN PRN, (Reported) Losartan Potassium (Losartan Potassium), 50 MG PO DAILY, (Reported) Montelukast Sodium (Montelukast Sodium), 10 MG OR DAILY, (Reported) Nifedipine (Nifedipine Er), 60 MG PO DAILY, (Reported) Discharge Statement: "Patient was advised to return to the ER or call 911 if any headaches, dizziness, shortness of breath, chest pain, abdominal pain, bleeding, fevers, or worsening of medical condition. Patient was counseled about treatment plan, medications, possible side effects, patientverbalized understanding. All questions were answered to the best of my ability. This discharge took greater then 30 minutes in planning, reviewing documentation, counseling the patient, and discussing with other team members." ASSESSMENT ASSESSMENT Assessment Date of Service: Apr 20, 2025 Billing Provider: NOLVIA CHAMBERLAIN MD Common Visit Codes: [id number] DISCH DAY >30min NOLVIA CHAMBERLAIN MD Apr 20, 2025 09:25
--- NOTE | 2025-04-20 10:08 | DVH ---
XY CHEST PORTABLE, HISTORY: POST CHEST TUBE REMOVAL COMPARISON: XY CHEST PORTABLE on DOS: 04/19/25, XY CHEST PORTABLE on DOS: 04/19/25, XY CHEST PORTABLE on DOS: 04/19/25 XY CHEST PORTABLE on DOS: 04/19/25, XY CHEST PORTABLE on DOS: 04/19/25, XY CHEST PORTABLE on DOS: 04/19/25 TECHNICAL DATA: 1 view of the chest was obtained. FINDINGS: Lines and tubes: None Cardiomediastinal silhouette: normal Pulmonary vasculature: normal Lung expansion: normal Lung airspace: Bibasilar patchy airspace opacities could be atelectasis. Lung interstitium: normal Pleura: normal Pneumothorax: no Bones: Unremarkable Other: no IMPRESSION: No pneumothorax after right pigtail chest tube removal. Bibasilar patchy airspace opacities could be atelectasis.
--- NOTE | 2025-04-20 22:02 | DVHPN2 ---
Progress Note - Dictate Date Seen: Apr 20, 2025 Medical Necessity Reason Pt with a Central, PICC or Fol: No Subjective Patient seen and examined at bedside. Remains on supplemental oxygen Overnight events reviewed. vital signs Vital Sign Date Time Temp Pulse Resp B/P (MAP) Pulse Ox O2 Delivery O2 Flow Rate FiO2 04/20/25 10:13 98.1 63 18 96 04/20/25 10:00 130/75 04/20/25 09:44 Nasal Cannula 2.0 04/20/25 09:44 28 Total Intake and Output 04/19/25 04/19/25 04/20/25 15:00 23:00 07:00 Intake Total 825 ml 100 ml Output Total 1800 ml Balance 825 ml -1700 ml medications Current Medications Medications Dose Ordered Sig/Fani Route Start Time Stop Time Status Last Admin Dose Admin Hydralazine HCl 25 mg Q6HPRN PO 04/20/25 00:00 UNV objective Gen.: Patient lying in bed in no apparent distress. On supplemental oxygen. Head: Normocephalic, atraumatic. Eyes: EOMI/PERRLA. Ears: Normal hearing. Normal anatomy. Neck/trachea: Trachea midline, supple. Nose: Normal external anatomy. Mouth: Moist mucous membranes. Chest: Decreased air entry bilaterally. No wheezing or rhonchi. Cardiovascular: Positive S1, positive S2. Regular rate and rhythm. Abdomen: Positive bowel sounds in all 4 quadrants. Soft, non-tender, non- distended. : Deferred. Rectal: Deferred. Skin: Warm, dry. Intact. Extremities: 2+ radial pulses bilaterally. No lower extremity edema. Neuro: Awake, alert, oriented x3. No gross motor or sensory deficits. Cranial nerves II through XII intact. Gait not assessed. laboratory and microbiology Laboratory Tests 04/19/25 06:50 Test 04/19/25 06:50 Range/Units Serum Glucose 134 H 74-106 mg/dL Assessment/Plan Impression: Pneumothorax s/p biopsy, right Chronic obstructive pulmonary disease Chronic hypoxic respiratory failure Dependence on supplemental oxygen Obesity, BMI 30.3 Events: Remains on supplemental oxygen, 2 LPM NC Taper O2 as tolerated No overnight events. Chest x-ray reveals no pneumothorax. IR removed chest tube. Incentive spirometry Patient is stable for discharge from the pulmonary standpoint. Follow up in 2-3 weeks in Pulmonary Clinic. Labs and imaging reviewed. Rest of plan as noted below. Plan: Supplemental oxygen Titrate to keep O2 sats above 92%. Continue bronchodilators PRN On Trelegy and Singulair IS. Monitor renal function. Monitor electrolytes. Supplement as necessary. Monitor ins and outs. Diet and lifestyle modifications for weight reduction Obesity complicates all care DVT prophylaxis. Prognosis: Guarded given patient's multiple co-morbidities. Rest of plan per hospitalist and other consultants. A total of 51 minutes of clinical care time was spent reviewing the patient record, examining the patient, making a diagnostic and therapeutic plan, discussing this plan with the medical personnel, following up on diagnostic studies and following the patient for clinical stability excluding any and all procedures. At least 50% of this time was spent in direct, [id number] contact. Thank you, GANESH Dan, for allowing me to participate in this patient's care. Further recommendations will depend on the patient's clinical course. Please do not hesitate to contact me if you have any questions or concerns. This medical document was created using an electronic medical record system with [employer] dictation system. Although these documentations are being carefully reviewed, there may still be some phonetic and typographical changes. The errors are purely typographical, due to imperfection on the software program, and do not reflect any compromise in the patient's medical care. Plan discussed with: Patient, Other (RN) MARNIE LAND MD Apr 20, 2025 22:02
== END 2025-04-20 11:16 | disposition home or self-care (01) | DRG 200 ==
LOC: CT 07:30 → OVERFLOW 10:37 → CENTRAL 13:59 → TELE-CENTR 21:58
PROVIDERS: ADMIT Internal Medicine; ATTEND Internal Medicine
PROC: 0W9930Z Drainage of Right Pleural Cavity with Drainage Device, Percutaneous Approach (ICD-10-PCS; principal; 2025-04-18)
PROC: 0BBK3ZX Excision of Right Lung, Percutaneous Approach, Diagnostic (ICD-10-PCS; 2025-04-18)
DX: J93.9 Pneumothorax, unspecified (principal); J96.11 Chronic respiratory failure with hypoxia; Z99.81 Dependence on supplemental oxygen; J44.9 Chronic obstructive pulmonary disease, unspecified; I10 Essential (primary) hypertension; E66.9 Obesity, unspecified; Z68.30 Body mass index [BMI] 30.0-30.9, adult; N40.0 Benign prostatic hyperplasia without lower urinary tract symptoms; Z83.3 Family history of diabetes mellitus; Z82.49 Family history of ischemic heart disease and other diseases of the circulatory system
CPT/HCPCS: 10005; 36415; 71045; 71046; 71250; 77012; 80053; 85025; 94640; C1729; G0378; J2250

== ENCOUNTER → 2025-07-26 | Outpatient (CLI) | payer OTHER ==
[2025-07-26 11:59] LABS: Hematocrit 40.7 % (41.0-53.0); Hemoglobin 13.8 g/dL (13.5-17.5); Mean Corpuscular Hemoglobin 29.6 pg (28.0-32.0); Mean Corpuscular Volume 87.4 fL (80.0-100.0); Nucleated Red Blood Cells % 0.1 %
[2025-07-26 13:35] LABS: Cholesterol 186 mg/dL (< 200)
[2025-07-26 13:37] LABS: Triglycerides 116 mg/dL (< 150)
[2025-07-26 13:44] LABS: HDL Cholesterol 32 mg/dL (40-59)
== END | disposition home or self-care (01) ==
LOC: LAB 10:08
PROVIDERS: ATTEND Internal Medicine
DX: I50.32 Chronic diastolic (congestive) heart failure (principal); J44.9 Chronic obstructive pulmonary disease, unspecified; R97.20 Elevated prostate specific antigen [PSA]
CPT/HCPCS: 36415; 80061; 84153; 85025

== ENCOUNTER 2025-08-17 12:20 | Outpatient (CLI) | payer OTHER ==
[2025-08-17 13:16] LABS: Alanine Aminotransferase 15.0 U/L (7-40); Albumin 4.1 g/dL (3.2-4.8); Alkaline Phosphatase 78.0 U/L (46-116); Bilirubin, Direct 0.2 mg/dL (<0.3); Bilirubin, Total 0.6 mg/dL (0.2-1.0); Total Protein 7.0 g/dL (5.7-8.2)
[2025-08-17 13:18] LABS: Creatine Kinase IFCC 17.0 U/L (46-171)
== END 2025-08-17 17:00 | disposition home or self-care (01) ==
LOC: LAB 12:20
PROVIDERS: ATTEND Internal Medicine
DX: I50.9 Heart failure, unspecified (principal); E78.5 Hyperlipidemia, unspecified
CPT/HCPCS: 36415; 80076; 82550; 83880

== ENCOUNTER 2025-08-29 10:10 | Outpatient (CLI) | payer OTHER ==
[~2025-08-29] VITALS: Ht 182.9 cm; Wt 99.8 kg
[2025-08-29] MEDS: REGADENOSON 0.4 MG/5 ML SYRG IV ONE ×2 (12:03→12:04)
--- NOTE | 2025-08-31 11:48 | DVHSR ---
APPROVED REPORT Exam: Nuclear Stress Test BMI: 0 Stress Test Details Stress Test: Pharmacologic stress testing performed using 0.4 mg of regadenoson per 5 mL given IV over 10 seconds. HR Resting HR: 82 bpm Max Heart Rate (APMHR): 149.021972 bpm Max HR Achieved: 73 bpm Target HR (85% APMHR): 126.722407 bpm % of APMHR: 48.99 Recovery HR: 86 bpm BP Resting BP: 125/66 mmHg Recovery BP: 114/55 mmHg ECG Resting ECG: Sinus Rhythm Clinical Reason for Termination: Completed protocol Nurse Comments Recieved pt. from [employer]. A/Ox4 on 3 liters NC. Connected to monitor worker, VS stable. Rt IV flushes well. Reviewed POC. Pt. verbalized understanding of procedure including risks and side effects, agrees for stress testing. Lexiscan stress test performed per protocol. Poptip administered Cardiolite. Pt. tolerated well. Pt. stable, no change on exam. VS returned to baseline. Transferred to [employer] via wheelchair w/ tech. Stress ECG Conclusion lvef 62% normal perfusion scan inferior wall artifact NM EXAM: Myocardial Perfusion REST/STRESS Imaging Protocol: Rest Tc-99m/Stress Tc-99m 1 day Resting Data Rest SPECT myocardial perfusion imaging was performed in supine position 60 minutes following the intravenous injection of 11.2 mCi of Tc-99m Sestamibi. Time of rest injection: 10:40 Date: 08/29/2025 Time of rest imagin:40 Date: 08/29/2025 Administration Route: IV Administration Site: Right AC Pharmacologic Stress Pharmacologic stress test was performed by injecting Regadenoson 0.4 mg IV push followed by the intravenous injection of 29.4 mCi of Tc-99m Sestamibi. Time of stress injection: 12:06 Date: 08/29/2025 Time of stress imagin:06 Date: 08/29/2025 Administration Route: IV Administration Site: Right AC Gated Stress SPECT was performed 60 minutes after stress injection. The images were gated to evaluate regional wall motion and calculate left ventricular ejection fraction. Stress only was performed in the Supine position. Nuclear Conclusion Nuclear Findings: negative for ischemia lvef 62% normal perfusion scan inferior wall artifact
== END 2025-08-29 17:00 | disposition home or self-care (01) ==
LOC: XYW 10:10
PROVIDERS: ATTEND Internal Medicine
DX: R07.9 Chest pain, unspecified (principal)
CPT/HCPCS: 78452; 93017; A9500; J2785

== ENCOUNTER 2025-09-16 12:46 | Emergency (ER) | payer OTHER ==
[~2025-09-16] VITALS: Ht 185.4 cm; Wt 104.5 kg
--- NOTE | 2025-09-16 15:54 | ED.PDOC ---
History of Present Illness HPI Comments 69 y/o obese M, with a history of BPH, presents with c/c of urine retention. Patient reports on awaking up at 0400, this morning and being unable pee since then. Last time he was able to urinate was last night. He states also on his abdomen being, noticeably, more swollen than usual. 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 Patient denies any further acute symptoms. Chief Complaint: Urinary Time Seen by MD: 15:20 Primary Care Provider: ID Reviewed Notes: Nurses Notes, Barbering Instructor Notes, Medications, Allergies Allergies: Coded Allergies: Statins (Verified Allergy, Unknown, 09/16/25) Home Meds Reported Medications Colchicine (Colchicine) 0.6 Mg Cap, 0.6 MG PO BID, CAP 09/23/24 Montelukast Sodium (MONTELUKAST SODIUM) 10 Mg Tab, 10 MG OR DAILY, TAB 09/23/24 Nifedipine (Nifedipine Er) 60 Mg Tab, 60 MG PO DAILY, TAB 09/23/24 Ozqppeigmlo-Lavzqralyqtt-Zdxsh (Trelegy Ellipta 200-62.5-25 Mcg/INH) 1 Aer Aer, 1 AER IN DAILY, AER 09/23/24 Ipratropium Davison (Ipratropium Davison) 0.02 % Emma, 0.5 % HHN PRN, ML 09/23/24 Furosemide (Furosemide) 20 Mg Tab, 20 MG PO DAILY 08/03/24 Carvedilol (Carvedilol) 3.125 Mg Tab, 3.125 MG PO BID 08/03/24 Losartan Potassium (Losartan Potassium) 50 Mg Tab, 50 MG PO DAILY 08/03/24 Escitalopram Oxalate (ESCITALOPRAM OXALATE) 10 Mg Tab, 10 MG PO DAILY 08/03/24 Cyanocobalamin (Vitamin B12) 100 Mcg Tab, 100 MCG PO DAILY, TAB 08/28/20 Finasteride (Finasteride) 5 Mg Tab, 5 MG PO DAILY, MG 08/28/20 Allopurinol (Allopurinol) 100 Mg Tab, 1 TAB PO QAM, MG GOUT PREVENTION 08/28/20 Albuterol Sulfate (VENTOLIN MDI) 90 Mcg Ih, 2 PUFF IN Q6HP, INH 08/28/20 Information Source: Patient Mode of Arrival: Ambulatory Severity: Moderate Timing: Hours Duration: Since onset Prehospital treatment: None Past Medical History PAST MEDICAL HISTORY: COPD, Gout, HTN, Liver Family History Family History: Reviewed,noncontributory to illness Social History Smoker: Non-Smoker, Quit Greater Than 1 Year Alcohol: Denies ETOH Use Drugs: Denies Drug Use Lives In: Home All Other Systems: Reviewed and Negative (Comprehensive review of systems are negative unless stated in HPI) Physical Exam General Appearance: Moderate Distress HEENT: Normal ENT Inspection, Pharynx Normal, TMs Normal Neck: Full Range of Motion, Non-Tender, Normal, Normal Inspection Respiratory: Chest Non-Tender, Lungs Clear, No Accessory Muscle Use, No Respiratory Distress, Normal Breath Sounds Cardiovascular: No Edema, No JVD, No Murmur, No Gallop, Normal Peripheral Pulses, Regular Rate/Rhythm Breast Exam: Deferred Gastrointestinal: No Organomegaly, Non Tender, No Pulsatile Mass, Normal Bowel Sounds, Soft Genitalia: Deferred Pelvic: Deferred Rectal: Deferred Extremities: No calf tenderness, Normal capillary refill, Normal inspection, Normal range of motion, Non-tender, No pedal edema Musculoskeletal : Apperance: Normal Neurologic: Alert, scrap baler II-XII nml as Tested, No Motor Deficits, Normal Affect, Normal Mood, No Sensory Deficits Cerebellar Function: Normal Reflexes: Normal Skin: Dry, Normal Color, Warm Peripheral Pulses: 3+ Radial (R), 3+ Radial (L) Lymphatic: No Adenopathy Was a procedure done? Was a procedure done?: No Differential Dx Considerations may include: BPH, bladder outlet obstruction, ureteral stone, kidney stones, epididymitis, among others X-Ray, Labs, Meds, VS Vital Signs Date Time Temp Pulse Resp B/P (MAP) Pulse Ox O2 Delivery O2 Flow Rate FiO2 09/16/25 12:47 97.6 77 20 142/84 88 97.6 Patient alert. Came in because of urinary symptoms. Urinary retention. Vitals stable. Answering questions. Egan catheter placed. Was given prescription of Bactrim. Explained to the patient. Was told to follow up with his primary care physician. Was told to come back if there is any problem. Time of 1ST Reevaluation: 15:50 Reevaluation 1ST: Unchanged Patient Education/Counseling: Diagnosis, Treatment Family Education/Counseling: No Family Present SEPSIS Sepsis Screen Date sepsis recognized/suspect: Sep 16, 2025 Time Sepsis recognized/suspect: 1249 Recent Procedure: No On Antibiotic Therapy: No Respiratory Rate >20: No Heart Rate >90: No Temp<36 C (96.8 F) or >38.3 C: No SBP <90 or MAP <65 mmHG: No New Acute Mental Status Change: No Is the patient on CPAP, BIPAP,: No Physician Orders Egan Catheters (09/16/25 ) Urinalysis (09/16/25 13:38) Insert Egan Catheter QSHIFT (09/16/25 15:25) Vital Signs Date Time Temp Pulse Resp B/P (MAP) Pulse Ox O2 Delivery O2 Flow Rate FiO2 09/16/25 12:47 97.6 77 20 142/84 88 97.6 Departure 1 Departure Time of Disposition: 16:14 Impression: Primary Impression: Urinary retention Additional Impression: Urinary tract infection Qualified Codes: N30.00 - Acute cystitis without hematuria Disposition: 01 HOME / SELF CARE / HOMELESS Condition: Good e-Prescriptions Sulfamethoxazole W/Trimethopri (Bactrim Ds Tablet) 1 Tab Tb 1 TAB PO BID for 7 Days, #14 TAB Prov: MALISSA BURR MD 09/16/25 Discharged With: Self Critical Care Note Critical Care Time?: No Stability Stability form required: No Heart Score Heart Score: Heart Score Response (Comments) Value History N/A 0 EKG N/A 0 Age N/A 0 Risk Factors N/A 0 Troponin N/A 0 Total 0 I personally scribed for MALISSA BURR MD ([email or web address]) on 09/16/25 at 15:54. Electronically submitted by Geoff Ritter [email or web address]). MALISSA BURR MD Sep 16, 2025 15:54
[2025-09-16] MEDS ORDERED: BACDST PO (16:15)
[2025-09-16 19:20] LABS: Urine Protein, UAD TRACE (Negative)
[2025-09-16 21:20] VITALS: BP 123/67; PULSE 77; RESP 18; TEMP 97.9; O2SAT 93
== END 2025-09-16 21:28 | disposition home or self-care (01) ==
LOC: ER 12:46
DX: N39.0 Urinary tract infection, site not specified (principal); R33.9 Retention of urine, unspecified; J44.9 Chronic obstructive pulmonary disease, unspecified; I10 Essential (primary) hypertension; Z88.8 Allergy status to other drugs, medicaments and biological substances; Z79.899 Other long term (current) drug therapy
CPT/HCPCS: 81001